=== PATIENT | female | born 1980 | race Hispanic/Latino ===

== ENCOUNTER 2016-07-02 05:07 | Emergency (ER) | payer MEDICARE ==
--- NOTE | 2016-07-02 07:13 | Emergency Department Report ---
ED General Adult HPI - General Chief complaint: Medical Clearance Stated complaint: G-TUBE REPLACEMENT Time Seen by Provider: 07/02/16 06:08 Source: EMS Mode of arrival: Stretcher Limitations: Physical Limitation - History of Present Illness Initial comments: 36 yo female with a past medical history traumatic brain injury, quadriplegia, seizures, previous trach tube, and current PEG tube presents to the hospital from [facility] for PEG tube displacement. Patient did not present with a PEG tube or indication of previous PEG tube sides. Pt is nonverbal and unable to provide any history of present illness. No acute distress noted. Severity scale (0 -10): 0 - Related Data Home Medications Medication Instructions Recorded Confirmed Last Taken Esomeprazole Magnesium [NexIUM] 40 mg FEEDTUBE QDAY 05/31/13 04/16/16 04/16/16 Hydrocodone Bit/Acetaminophen 7.5 - 325 mg FEEDTUBE Q6H PRN 05/31/13 04/16/16 [Lortab 7.5-500 mg] LORazepam [Ativan] 1 mg FEEDTUBE BID 05/31/13 04/16/16 04/16/16 PHENobarbital 97.2 mg FEEDTUBE QDAY 05/31/13 04/16/16 04/16/16 Protein Supplement [Promod] 30 ml FEEDTUBE BID 12/17/13 04/16/16 04/16/16 Sertraline Oral Liqd(Nf) [Zoloft 50 mg FEEDTUBE QHS 12/17/13 04/16/16 04/16/16 20 mg/ml] LORazepam 1 ml IM Q6H PRN 08/18/14 04/16/16 04/16/16 levETIRAcetam [Keppra ORAL LIQ] 1,000 mg FEEDTUBE BID 08/18/14 04/16/16 04/16/16 Previous Rx's Medication Instructions Recorded Last Taken Type Sodium Bicarbonate 325 mg FEEDTUBE PRN PRN #30 tablet 06/02/13 04/16/16 Rx Allergies Allergy/AdvReac Type Severity Reaction Status Date / Time FORTINO Inhibitors Allergy Unknown Verified 05/31/13 11:51 ED Review of Systems ROS: Stated complaint: G-TUBE REPLACEMENT Other details as noted in HPI Comment: Unobtainable due to pts medical conditions ED Past Medical Hx - Past Medical History Previous Medical History?: Yes Hx Congestive Heart Failure: No Hx Diabetes: No Hx GERD: Yes Hx Seizures: Yes Hx Asthma: No Hx COPD: No Hx HIV: No Additional medical history: traumatic brain injury, anxiety, depression, quadraplegia - Surgical History Past Surgical History?: Yes Additional Surgical History: previous trach, PEG tube - Social History Smoking Status: Never Smoker - Medications Home Medications: Home Medications Medication Instructions Recorded Confirmed Last Taken Type Esomeprazole Magnesium [NexIUM] 40 mg FEEDTUBE QDAY 05/31/13 04/16/16 04/16/16 History Hydrocodone Bit/Acetaminophen 7.5 - 325 mg FEEDTUBE Q6H PRN 05/31/13 04/16/16 History [Lortab 7.5-500 mg] LORazepam [Ativan] 1 mg FEEDTUBE BID 05/31/13 04/16/16 04/16/16 History PHENobarbital 97.2 mg FEEDTUBE QDAY 05/31/13 04/16/16 04/16/16 History Sodium Bicarbonate 325 mg FEEDTUBE PRN PRN #30 tablet 06/02/13 04/16/16 Rx Protein Supplement [Promod] 30 ml FEEDTUBE BID 12/17/13 04/16/16 04/16/16 History Sertraline Oral Liqd(Nf) [Zoloft 50 mg FEEDTUBE QHS 12/17/13 04/16/16 04/16/16 History 20 mg/ml] LORazepam 1 ml IM Q6H PRN 08/18/14 04/16/16 04/16/16 History levETIRAcetam [Keppra ORAL LIQ] 1,000 mg FEEDTUBE BID 08/18/14 04/16/16 History ED Physical Exam - General Limitations: Physical Limitation - Other Other exam information: General: No limitations, patient is alert in no acute distress Head exam: Atraumatic, normocephalic Eyes exam: Normal appearance ENT: Moist mucous membrane, normal oropharynx Neck exam: Normal inspection, full range of motion, no meningismus nontender Respiratory exam: Clear to auscultation bilateral, no wheezes, rales, crackles Cardiovascular: Normal rate and rhythm Abdomen: Soft, nondistended, and nontender, with normal bowel sounds, no rebound, or guarding. peg stoma noted and appears patent on exam Extremity: Contracted extremities Neurologic: Alert, nonverbal, contracted Psychiatric: normal affect, normal mood Skin: Warm, dry, intact ED Course Vital Signs 07/02/16 07/02/16 07/02/16 06:21 07:05 07:49 Temperature 98.8 F Pulse Rate 76 88 Respiratory 16 16 16 Rate Blood Pressure 113/80 Blood Pressure 113/80 130/80 [Right] O2 Sat by Pulse 96 95 96 Oximetry - Consultations Consultation #1: 07/02/16 08:13 case d/w Dr Cross with GI and states 16f is adequate for feeds and pt may be d/ margi - Procedure Description Procedures done: 16 [place] PEG tube was placed in the stoma using surgery loop to lubricate. Positive gastric contents obtained. Balloon inflated with 5 mL of normal saline. G-tube study ordered ED Medical Decision Making - Radiology Data Radiology results: report reviewed (g tube study: tube in distal stomach, Gastrografin in bowel) - Medical Decision Making 16 [place] G-tube placed without incidence. [facility] be [facility] - Differential Diagnosis G-tube displacement Critical Care Time: No Critical care attestation.: If time is entered above; I have spent that time in minutes in the direct care of this critically ill patient, excluding procedure time. ED Disposition Clinical Impression: Malfunction of gastrostomy tube Disposition: DISCHARGED TO HOME OR SELFCARE Is pt being admited?: No Does the pt Need Aspirin: No Condition: Stable Instructions: How to Use and Care for Your PEG Tube (ED) Referrals: PRIMARY CAREMD [Primary Care Provider] - 3-5 Days Time of Disposition: 08:14
[2016-07-02 07:49] VITALS: BP 130/80
--- NOTE | 2016-07-02 09:22 | XRay Report ---
G-TUBE STUDY: HISTORY: PEG tube placement, position and confirmation. FINDINGS: Paperhanger Pipe film of the abdomen demonstrates moderate constipation and a PEG tube in the epigastric region. A second radiograph was obtained following injection of oral contrast through the PEG tube which outlines the stomach and multiple proximal small bowel loops. There is no evidence for focal lesion, obstruction or extravasation. IMPRESSION: The PEG tube terminates in the stomach. No abnormality is detected.
== END 2016-07-02 10:00 | disposition home or self-care (01) ==
LOC: ED 05:07
DX: K94.23 Gastrostomy malfunction (principal); K21.9 Gastro-esophageal reflux disease without esophagitis; R56.9 Unspecified convulsions; F41.9 Anxiety disorder, unspecified; F32.9 Major depressive disorder, single episode, unspecified; Z88.8 Allergy status to other drugs, medicaments and biological substances
CPT/HCPCS: 74000; Q9963

== ENCOUNTER 2016-08-21 07:07 | Inpatient (IN) | payer MEDICARE ==
[2016-08-21] MEDS ORDERED: NACL 0.9% 1000 ML 1,000 ML ONE ×2 (07:10→09:40)
[2016-08-21] MEDS ORDERED: TYLENOL PR ONE (07:11)
[2016-08-21] MEDS ORDERED: VASELINE LIP THERAPY TP PRN (07:15)
[2016-08-21] MEDS ORDERED: ARTIFICIAL TEARS OPHTH OINT OU PRN (07:15)
[2016-08-21] MEDS ORDERED: NACL 0.9% 500 ML 500 ML IV ONE (07:15)
[2016-08-21] MEDS ORDERED: TYLENOL ONE (07:18)
[2016-08-21] MEDS ORDERED: TYLENOL FEEDTUBE PRN (07:20)
[2016-08-21] MEDS ORDERED: VANCOMYCIN/NS 1 GM/250 ML 1 GM/250 ML BAG IV ONE ×2 (07:21→07:23)
[2016-08-21] MEDS ORDERED: ZOSYN/NS 4.5GM/100ML 4.5 GM/100 ML VIAL IV ONE ×2 (07:21→07:24)
[2016-08-21] MEDS ORDERED: NACL 0.9% 1000 ML 2,000 ML IV ONE (07:21)
[2016-08-21] MEDS ORDERED: TYLENOL FEEDTUBE ONE (07:25)
--- NOTE | 2016-08-21 07:55 | XRay Report ---
AP CHEST: HISTORY: Endotracheal tube placement. Compared to 10/27/15. The endotracheal tube is in adequate position terminating 3.5 cm superior to the nitza. A right IJ venous catheter terminates at the cavoatrial junction. Left lower lobe opacity has resolved since the previous exam. The lungs are clear. Normal heart and mediastinal structures. Normal bony thorax. IMPRESSION: Adequate placement of lines and tubes. Otherwise normal AP chest.
[2016-08-21] MEDS ORDERED: NACL 0.9% 500 ML IV SCH (08:00)
[2016-08-21 08:16] LABS: Bacteria,Urine 4+ /HPF (Negative); Bilirubin,Urine NEG (Negative); Blood,Urine NEG (Negative); Ketones,Urine TR mg/dL (Negative); Leukocyte Esterase,Urine NEG (Negative); Nitrite,Urine NEG (Negative)
[2016-08-21 08:17] LABS: INR 2.2 (0.87-1.13)
[2016-08-21 08:18] LABS: WBC,Urine > 182.0 /HPF (0.0-6.0)
[2016-08-21] MEDS ORDERED: SIMPLE SYRUP FEEDTUBE PRN ×4 (08:20→16:34)
[2016-08-21] MEDS ORDERED: ALUM-MAG HYDROX-SIMETH 200-200-20MG/5ML PO PRN (08:20)
[2016-08-21] MEDS ORDERED: DULCOLAX PR PRN (08:20)
[2016-08-21] MEDS ORDERED: VANCOMYCIN VIAL 1,250 MG in NACL 0.9% 500 ML 500 ML IV ONE (08:20)
[2016-08-21] MEDS ORDERED: NACL 0.9% 1000 ML 1,000 ML IV ONE ×3 (08:20→10:57)
[2016-08-21] MEDS ORDERED: SODIUM BICARBONATE FEEDTUBE PRN ×2 (08:20→16:34)
[2016-08-21] MEDS ORDERED: PANCREAZE DR 10,500 UNIT FEEDTUBE PRN ×2 (08:20→16:34)
[2016-08-21] MEDS ORDERED: MILK OF MAGNESIA PO PRN (08:20)
[2016-08-21 08:21] LABS: Albumin 2.6 g/dL (3.9-5); Albumin/Globulin Ratio 0.9 %; BUN/Creatinine Ratio 31.92; Bilirubin,Total 0.9 mg/dL (0.1-1.2); Chloride 133.6 mmol/L (98-107); Potassium 3.8 mmol/L (3.6-5.0); Total Protein 5.6 g/dL (6.3-8.2)
[2016-08-21 08:22] LABS: Mean Corpuscular HGB Conc 31 % (30-34); Mean Corpuscular Hemoglobin 32 pg (28-32); Mean Corpuscular Volume 103 fl (79-97); Red Blood Count 4.63 M/mm3 (3.65-5.03); Red Cell Distribution Width 15.4 % (13.2-15.2); White Blood Count 10.7 K/mm3 (4.5-11.0)
[2016-08-21 08:26] LABS: Hemoglobin 14.7 gm/dl (10.1-14.3)
[2016-08-21 08:27] LABS: Hematocrit 47.7 % (30.3-42.9)
[2016-08-21] MEDS ORDERED: ASPIRIN FEEDTUBE ONE (08:27)
--- NOTE | 2016-08-21 08:27 | Emergency Department Report ---
HPI - General Chief Complaint: Dyspnea/Respdistress Time Seen by Provider: 08/21/16 07:49 - HPI HPI: Chief complaint: Decreased responsiveness HPI: Patient is a correction patient with a history of quadriplegia and a G- tube who according to EMS was found this morning unresponsive. According to EMS the correction staff that the patient normally can speak and is alert and oriented. According to the paperwork, patient has quadriplegia and aphasia. EMS states that patient was barely breathing and they intubated her in route and started IV fluids. Mode of arrival: [EMS] Source: EMS and correction notes Began: Unable to assess Duration: Unable to assess Context: See above Quality: Unable to assess Severity: Unable to assess Improved with: Unable to assess Worsened with: Unable to assess Associated signs and symptoms: Unable to assess ED Past Medical Hx - Past Medical History Hx GERD: Yes Hx Seizures: Yes Additional medical history: traumatic brain injury, anxiety, depression, quadraplegia - Surgical History Additional Surgical History: previous trach, PEG tube - Social History Smoking Status: Unknown if ever smoked - Medications Home Medications: Home Medications Medication Instructions Recorded Confirmed Last Taken Type Esomeprazole Magnesium [NexIUM] 40 mg FEEDTUBE QDAY 05/31/13 04/16/16 04/16/16 History Hydrocodone Bit/Acetaminophen 7.5 - 325 mg FEEDTUBE Q6H PRN 05/31/13 04/16/16 History [Lortab 7.5-500 mg] LORazepam [Ativan] 1 mg FEEDTUBE BID 05/31/13 04/16/16 04/16/16 History PHENobarbital 97.2 mg FEEDTUBE QDAY 05/31/13 04/16/16 04/16/16 History Sodium Bicarbonate 325 mg FEEDTUBE PRN PRN #30 tablet 06/02/13 04/16/16 Rx Protein Supplement [Promod] 30 ml FEEDTUBE BID 12/17/13 04/16/16 04/16/16 History Sertraline Oral Liqd(Nf) [Zoloft 50 mg FEEDTUBE QHS 12/17/13 04/16/16 04/16/16 History 20 mg/ml] LORazepam 1 ml IM Q6H PRN 08/18/14 04/16/16 04/16/16 History levETIRAcetam [Keppra ORAL LIQ] 1,000 mg FEEDTUBE BID 08/18/14 04/16/16 History ED Review of Systems ROS: Stated complaint: UNRESPONSIVE Other details as noted in HPI Comment: Unobtainable due to pts medical conditions (patient unresponsive and intubated) Physical Exam - Physical Exam Vital Signs: Vital Signs 08/21/16 08/21/16 08/21/16 07:09 07:15 07:35 Temperature 108.0 F H Pulse Rate 178 H 150 H 150 H Respiratory 16 33 H Rate Blood Pressure 43/13 138/106 Blood Pressure 61/22 [Left] O2 Sat by Pulse 93 100 Oximetry 08/21/16 08/21/16 07:52 07:56 Temperature Pulse Rate 148 H 144 H Respiratory 33 H 33 H Rate Blood Pressure Blood Pressure 122/47 138/106 [Left] O2 Sat by Pulse 100 100 Oximetry Physical Exam: GENERAL: The patient is a chronically ill-appearing female who is unresponsive. HEENT: Patient is intubated and has a scar to her anterior neck from a previous tracheostomy. NECK: Supple. No meningitic signs are noted. There is no adenopathy noted. CHEST/LUNGS: Clear to auscultation. Bilateral breath sounds with bagging. No respiratory effort. HEART/CARDIOVASCULAR: Regular. There is tachycardia. There is no gallop rub or murmur. ABDOMEN: Abdomen is soft, nontender. Patient has normal bowel sounds. There is no abdominal distention. G-tube in place SKIN: There is no rash. There is no edema. There is no diaphoresis. NEURO: The patient is obtunded. MUSCULOSKELETAL: Patient has contractures of all 4 extremities. ED Course Vital Signs 08/21/16 08/21/16 08/21/16 07:09 07:15 07:35 Temperature 108.0 F H Pulse Rate 178 H 150 H 150 H Respiratory 16 33 H Rate Blood Pressure 43/13 138/106 Blood Pressure 61/22 [Left] O2 Sat by Pulse 93 100 Oximetry 08/21/16 08/21/16 07:52 07:56 Temperature Pulse Rate 148 H 144 H Respiratory 33 H 33 H Rate Blood Pressure Blood Pressure 122/47 138/106 [Left] O2 Sat by Pulse 100 100 Oximetry - Reevaluation(s) Reevaluation #1: 08/21/16 Noted to have a temp of 108 rectally and a septic workup was begun. Central line was placed by myself and patient was given 2 L of normal saline wide open and started on Levophed drip. Patient was cultured and 1 g of IV vancomycin and 4.5 g of Zosyn were given IV. Patient was admitted to the hospitalist. - Central Line Placement Right IJ Consent Obtained: emergent situation Time Out Performed: No Patient Placed on Monitor/Pulse Ox: Yes MD Prep: mask, gown, gloves, other Central Line Prep: Povidone-Iodine 1% Ultrasound Used for Placement: Yes Central Line Lumen Inserted: triple Bloods Obtained for Lab: Yes Central Line Position: good blood return, all ports aspirated, flus, sutured in place with 3-0 Dressing Applied: Tegaderm Post Procedure X-Ray: tip of catheter in good p Patient Tolerated Procedure: no complications Complications: none ED Medical Decision Making - Lab Data Result diagrams: 08/21/16 07:15 08/21/16 07:49 Laboratory Tests 12/17/13 12/17/13 08/21/16 12:05 12:13 07:25 PT INR VBG pH Lactic Acid Calcium Total Protein Albumin Ur Leukocyte Esterase Neg Urine WBC (Auto) 71.0 H > 182.0 H Urine RBC (Auto) 35.0 20.0 U Epithel Cells (Auto) 4.0 20.0 H Urine WBC Clumps 2+ Urine Bacteria (Auto) 1+ 4+ Phenobarbital 15.7 08/21/16 08/21/16 08/21/16 07:49 07:49 07:49 PT 24.5 H INR 2.20 H VBG pH Lactic Acid 4.4 H* Calcium 7.0 L Total Protein 5.6 L Albumin 2.6 L Ur Leukocyte Esterase Urine WBC (Auto) Urine RBC (Auto) U Epithel Cells (Auto) Urine WBC Clumps Urine Bacteria (Auto) Phenobarbital 08/21/16 07:49 PT INR VBG pH 7.285 L Lactic Acid Calcium Total Protein Albumin Ur Leukocyte Esterase Urine WBC (Auto) Urine RBC (Auto) U Epithel Cells (Auto) Urine WBC Clumps Urine Bacteria (Auto) Phenobarbital - EKG Data -: EKG Interpreted by Ut EKG shows normal: sinus rhythm Rate: tachycardia (153) - EKG Data When compared to previous EKG there are: previous EKG unavailable Interpretation: subendocardial ischemia (diffuse) - Radiology Data Radiology results: report reviewed (chest x-ray shows ET tube and central line in good position with no acute pathology.) Critical care time in (mins) excluding proc time.: 35 Critical care attestation.: If time is entered above; I have spent that time in minutes in the direct care of this critically ill patient, excluding procedure time. ED Disposition Clinical Impression: Dehydration with hypernatremia Urinary tract infection Qualifiers: Urinary tract infection type: acute pyelonephritis Qualified Code(s): N10 - Acute pyelonephritis Sepsis Qualifiers: Sepsis type: sepsis due to unspecified organism Qualified Code(s): A41.9 - Sepsis, unspecified organism Acute renal failure Qualifiers: Acute renal failure type: unspecified Qualified Code(s): N17.9 - Acute kidney failure, unspecified Disposition: OP ADMITTED IP TO THIS HOSP Is pt being admited?: Yes Does the pt Need Aspirin: Yes Condition: Critical Referrals: BRIDGER RODRIGUEZ MD [Primary Care Provider] - 3-5 Days Time of Disposition: 08:25 (admit to the hospitalist)
[2016-08-21] MEDS: LEVOPHED DRIP 4 MG/NS 250 ML 4 MG/250 ML BAG IV SCH ×7 (08:30→23:00)
[2016-08-21 08:51] LABS: ISTAT Base Excess -12; ISTAT HCO3 14.5; ISTAT PCO2 28.2 (35-45); ISTAT PH 7.318 (7.35-7.45); ISTAT PO2 504 (80-105); ISTAT SO2 100; ISTAT TCO2 15
[2016-08-21] MEDS ORDERED: NACL 0.9% 1000 ML 1,000 ML IV SCH (09:00)
[2016-08-21] MEDS ORDERED: VANCOMYCIN PHARMACY TO DOSE IV SCH (09:00)
[2016-08-21 09:11] LABS: Basophils % (Manual) 0 % (0.0-1.8); Blastocytes % (Manual) 0 %; Eosinophils % (Manual) 0 % (0.0-4.3)
[2016-08-21 09:12] LABS: Diff Status Complete; Large Platelets 1+; Platelet Estimate Appears Decreased
[2016-08-21 09:13] LABS: RBC Morphology Normal
--- NOTE | 2016-08-21 09:18 | Admit Criteria Form ---
Admission Criteria Documentation: SEVERE SEPSIS Clinical Indications for Admission to Inpatient Care (Place 'X' for any and all applicable criteria): Hospital admission is needed for appropriate care of the patient because of ANY ONE of the following: [X]I. Hemodynamic instability indicated by ANY ONE of the following(1)(2)(3)( 4)(5): [X]a. Vital sign abnormality not readily corrected by appropriate treatment within 12 to 24 hours indicated by ANY ONE of the following: [X]i) Tachycardia that persists despite appropriate treatment []ii) Hypotension that persists despite appropriate treatment []iii) Orthostatic vital sign changes that persist despite appropriate treatment [X]b. Vital sign abnormality that is severe indicated by ANY ONE of the following: [X]i.Inadequate perfusion indicated by ANY ONE of the following : [X]1) Lactic acidosis (greater than 2 mmol/L) []2) New abnormal capillary refill (greater than 3 seconds) []3) Reduced urine output []4) New altered mental status []5) Myocardial Ischemia []ii. Mean arterial pressure [A] less than 60 mm Hg []iii. Mean arterial pressure[A] less than 70 mm Hg after 30 minutes of appropriate treatment (eg, fluid resuscitation) []iv. Sustained heart rate greater than 120 beats per minute in adult []v. IV inotropic or vasopressor medication required to maintain adequate blood pressure or perfusion [X]II. Systemic or infectious condition causing severe symptoms or findings not responsive to emergency or observation care treatment (as appropriate) indicated by ANY ONE of the following: []a. Cardiac arrhythmias of immediate concern(1)(2)(3) []b. Severe endocrine disorder (eg, thyrotoxicosis, adrenal insufficiency)(4)(5) []c. Seizures (eg, new or recurrent)(6) []d. New-onset end organ failure or dysfunction as indicated by ANY ONE of the following: []i. Acute unexplained hypoxemia (eg, not from lung infection or chronic disease)(7)(8)(9) []ii. Acute renal failure as indicated by new onset of ANY ONE of the following(10)(11)(12)(13)(14): []1) 3-fold rise in serum creatinine from baseline []2) Serum creatinine greater than 4 mg/dL (354 micromoles/L) with acute rise greater than 0.5 mg/dL (44.2 micromoles/L) []3) Reduction of more than 75% in estimated glomerular filtration rate from baseline. []4) Estimated glomerular filtration rate less than 35 mL/min/1.73m2 ( 0.59 mL/sec/1.73m2) in child younger than 18 years. []5) Cessation of urine output indicated by ALL of the following: []A. Adequate volume status []B. Inadequate urine output as indicated by ANY ONE of the following: []a. Urine output less than 0.3 mL/kg/hr for 24 hours []b. Anuria (urine output less than 0.1 mL/kg/hr) for 12 hours []iii. Acute mental status changes(15) []iv. Acute hepatic failure (eg, plasma bilirubin greater than 4 mg/ dL (68 micromoles/L), new INR greater than 2.0)(16)(17) []e. Unmanageable nausea and vomiting(18) []f. New-onset or uncontrolled central diabetes insipidus(19)(20) []g. Clinically significant dehydration(18)(21) []h. Hypoglycemia(22) [X]i. Acidosis (pH less than 7.35) or alkalosis (pH greater than 7.45)( 22)(23) []j. Toxic drug level that indicates need for specific monitoring or treatment(24)(25) [X]k. Severe electrolyte abnormalities indicated by ALL of the following (1)(2)(3): [X]i. Electrolytes and associated findings are not as expected for patient baseline or acceptable treatment effects. []ii. Severe abnormalities indicated by ANY ONE of the following: []1) Sodium less than 130 mEq/L (mmol/L) (new) []2) Sodium less than 135 mEq/L (mmol/L) with ANY ONE of the following: []A. Uncorrectable (to near normal or chronic baseline) after trial of outpatient and emergency treatment []B. Altered mental status []C. Seizures []D. Severe medical etiology requiring inpatient management (eg , heart failure, hypovolemia) [X]3) Sodium greater than 155 mEq/L (mmol/L) []4) Sodium greater than 150 mEq/L (mmol/L) with ANY ONE of the following: []A. Uncorrectable (to near normal or chronic baseline) with outpatient and emergency treatment []B. Altered mental status []C. Seizures []D. Severe medical etiology (eg, hypovolemia, diabetes insipidus) []5) Potassium less than 2.5 mEq/L (mmol/L) despite outpatient and emergency treatment []6) Potassium less than 3 mEq/L (mmol/L) with ANY ONE of the following : []A. Weakness []B. Cardiac abnormality (eg, arrhythmia, conduction disturbance ) []C. Cardiac ischemia []D. Ileus []E. Ongoing medical cause requiring inpatient management (eg, acute renal wasting or SIADH) []F. Other severe symptoms []7) Potassium greater than 6.5 mEq/L (mmol/L) []8) Potassium greater than 5 mEq/L (mmol/L) with ANY ONE of the following: []A. Uncorrectable (to near normal or chronic baseline) with outpatient and emergency treatment []B. Severe ECG findings[A] []C. Acute worsening of renal failure (creatinine greater than 2.5 mg/dL (221 micromoles/L) or significant elevation for age and size) []D. Severe weakness []E. Severe medical etiology (eg, hemolysis, infection, drug overdose) []9) Calcium less than 7 mg/dL (1.75 mmol/L) despite outpatient and emergency treatment(5) []10) Calcium less than 8 mg/dL (2 mmol/L) with significant symptoms or findings (eg, altered mental status, muscle spasms, seizures, breathing difficulty, cardiac abnormality (eg, arrhythmia or conduction disturbance))(5) []11) Calcium greater than 14 mg/dL (3.5 mmol/L)(5) []12) Calcium greater than 12 mg/dL (3 mmol/L) with ANY ONE of the following(5): []A. Uncorrectable (to near normal or chronic baseline) with outpatient and emergency treatment []B. Significant dehydration or hypovolemia as indicated by ALL of the following(3)(6)(7): []a. Not resolved with initial treatments []b. Clinically significant dehydration as indicated by ANY ONE of the following: [](1) Vomiting refractory to outpatient treatment (ie, precluding oral rehydration) [](2) Inability to drink [](3) Hypernatremia or other electrolyte abnormality unable to be corrected with outpatient and emergency treatment [](4) Failure to remain hydrated with outpatient therapy [](5) Reduced urine output [](6) Hypotension [](7) Serious cause for dehydration requiring acute hospitalization ( eg, bowel obstruction, increased intracranial pressure, infectious cause) [](8) Child with ANY ONE of the following(8): [](i) Severe abdominal tenderness [](ii) Adequate care not available at home [](iii) Severe dehydration (greater than 9% loss of body weight) []C. Significant symptoms or findings (eg, altered mental status , cardiac abnormality (eg, arrhythmia, conduction disturbance), malignant etiology requiring inpatient treatment) []13) Phosphorus less than 1 mg/dL (0.32 mmol/L) []14) Phosphorus less than 1.5 mg/dL (0.48 mmol/L) with ANY ONE of the following: []A. Patient unresponsive to outpatient and emergency treatment []B. Significant symptoms or findings (eg, weakness, altered mental status, breathing difficulty, seizures, rhabdomyolysis) []15) Phosphorus greater than 10 mg/dL (3.2 mmol/L) []16) Phosphorus greater than 4.5 mg/dL (1.45 mmol/L) (new) with ANY ONE of the following: []A. Severe medical etiology (eg, crush injury, acute renal failure) []B. Associated hypocalcemia with significant findings (eg, neurologic symptoms, altered mental status, muscle spasms, seizures, breathing difficulty, cardiac abnormality (eg, arrhythmia, conduction disturbance)) []16) Magnesium less than 1 mg/dL (0.41 mmol/L) []17) Magnesium less than 1.5 mg/dL (0.62 mmol/L) with ANY ONE of the following: []A. Patient unresponsive to outpatient and emergency treatment []B. Associated hypocalcemia with significant findings (eg, altered mental status, muscle spasms, seizures, breathing difficulty, cardiac abnormality (eg, arrhythmia, conduction disturbance)) []C. Associated hypokalemia (potassium less than 3 mEq/L (mmol/L )) with risk of arrhythmia []18) Magnesium greater than 4 mEq/L (2 mmol/L) []19) Magnesium greater than 2.5 mEq/L (1.25 mmol/L) with significant symptoms or findings (eg, weakness, altered mental status, cardiac abnormality (eg, arrhythmia, conduction disturbance), breathing difficulty, severe medical etiology (eg, renal failure, hypovolemia)) []20) Uric acid greater than 20 mg/dL (1190 micromoles/L)(9) []21) Uric acid greater than 8 mg/dL (476 micromoles/L) with significant symptoms or findings of tumor lysis syndrome (eg, creatinine greater than 1.5 times upper limit of normal, cardiac abnormality (eg , arrhythmia, conduction disturbance), seizure)(9) [X]III. High fever or other high-risk infection situation as indicated by ANY ONE of the following(26)(27)(28): []a. Outpatient and observation care antimicrobial treatment unavailable, not effective, or not appropriate []b. Documented bacteremia [X]c. Temperature greater than 104.9 degrees F (40.5 degrees C) (oral) []d. Temperature greater than 103.1 degrees F (39.5 degrees C) (oral) or less than 96.8 degrees F (36 degrees C) (rectal) that does not respond to emergency treatment and observation care []IV. High-risk febrile neutropenia[A] as indicated by ANY ONE of the following(29)(30)(31)(32): []a. Profound neutropenia[B] anticipated to extend for more than 7 days []b. Hemodynamic instability []c. Hypoxemia []d. Tachypnea []e. Altered mental status []f. New-onset abdominal pain []g. New-onset vomiting or diarrhea []h. Oral or gastrointestinal mucositis that interferes with swallowing or causes severe diarrhea []i. Focal infection (eg, cellulitis, pneumonia, central line or catheter infection, perirectal abscess) []j. Renal insufficiency (eg, GFR of less than 30 mL/min/1.73m2 (0.5 mL/sec /1.73m2)). []k. Severe liver dysfunction (transaminase levels greater than 5 times normal) []l. Platelet count less than 50,000/mm3 (50 x109/L)(33) []m. Leukemia or lymphoma induction therapy []n. Leukemia not in complete remission or with evidence of disease progression []o. Bone marrow transplant patient []p. Alemtuzumab being used for therapy []q. [employer]inational Association for Supportive Care in Cancer (MASCC) Risk Index score of less than 21[C](33)(35). []V. Isolation required (eg, tuberculosis that requires isolation, Ebola infection)[D](36)(37)(38)(39)(40) []. Gangrene that requires treatment beyond emergency or observation level care(41)(42) []VII. Antitoxin administration and ongoing observation required (eg, tetanus, botulism)(43)(44) []. Suspected infection with rapid progression or severe symptoms as indicated by ANY ONE of the following(45): []a. Streptococcal or staphylococcal toxic shock(46) []b. Diphtheria(47) []c. Hantavirus(48) []d. Severe acute respiratory syndrome(8)(49) []e. Anthrax(50) []f. Ebola[D](36)(37)(38) []g. Necrotizing soft tissue infection(41)(42) []h. Plague(50) []i. Other suspected infection that requires care beyond emergency or observation level care []VII. Severe adverse drug or systemic toxin reaction as indicated by ANY ONE of the following(24): []a. Serotonin syndrome(51)(52) []b. Neuroleptic malignant syndrome(51)(52) []c. Cholinergic syndrome with severe symptoms (eg, bronchorrhea, weakness , mental status changes, seizures)(53) []d. Anticholinergic syndrome []e. Sympathetic syndrome with severe symptoms (eg, seizures, mental status changes, cardiac dysrhythmias) []f. Other severe adverse drug or systemic toxin reaction that remains after emergency or observation level care (as appropriate) []VIII. Allergic reaction with severe symptoms (not responsive to emergency or observation care treatment as appropriate), including ANY ONE of the following(54): []a. Airway edema (pharyngeal, epiglottic, or laryngeal edema) []b. Stridor []c. Respiratory failure []d. Bronchospasm []e. Hypotension []IX. Environmental emergency (not responsive to emergency or observation care treatment as appropriate) as indicated by ANY ONE of the following(55)(56): []a. Hyperthermia []b. Heat stroke []c. Heat exhaustion []d. Hypothermia (temperature less than 95 degrees F (35 degrees C) rectal) (57) []e. Electrocution(58) []X. Complications of transplanted organ (ie, not covered elsewhere)[E] indicated by ANY ONE of the following(59): []a. Acute graft rejection (or graft vs. host disease)[F] requiring inpatient management (eg, intravenous immunosuppression)(60)(61)(62)( 63) []b. Acute failure of transplanted organ necessitating inpatient care (eg, cannot be managed in other setting) []c. Infection requiring inpatient management (eg, Hemodynamic instability, need for intravenous antimicrobial treatment)(64)(65) []d. Other complication of transplanted organ requiring inpatient management []XI. Systemic or Infectious Condition condition, symptom, or finding for which emergency and observation care have failed or are not considered appropriate. See General Criteria: Observation Care, General Admission Criteria or Pediatric General Admission Criteria guideline as appropriate. (Contents from SEVERE SEPSIS and SYSTEMIC OR INFECTIOUS CONDITION clinical indications for admission to inpatient care have been integrated in this form) The original [facility] content created by [facility] [employer] has been revised. The portions of the content which have been revised are identified through the use of italic text or in bold and [facility] has neither reviewed nor approved the modified material. All other unmodified content is copyright [facility]. Please see references footnoted in the original [facility] edition 2016 Admission Criteria Met: Yes
[2016-08-21] MEDS ORDERED: VANCOMYCIN VIAL 1,250 MG in NACL 0.9% 250ML 250 ML IV ONE (10:00)
[2016-08-21] MEDS: ZOSYN/NS 4.5GM/100ML 4.5 GM/100 ML VIAL IV SCH ×3 (10:04→18:21)
[2016-08-21 10:28] LABS: Platelet Count 87 K/mm3 (140-440)
--- NOTE | 2016-08-21 10:48 | Consultation ---
History of Present Illness - Reason for Consult Consult date: 08/21/16 Critical Care/ICU management Requesting physician: YUNG POON - History of Present Illness 36 y/o female history of TBI, resides a nursing facility, brought in to ED hypotensive and unresponsive. Intubated in the ED and had a right IJ central line placed. Currently maxed on levophed. Unresponsive and no family no unable to obtain any further history. Has been admitted here to [facility] , last admit was in October of 2015. Past History Past Medical History: GERD, other (seizures, quadraplegia) Past Surgical History: Other (unable to obtain) Social history: other (lives at nursing facility.) Family history: other (unable to obtain) Medications and Allergies Allergies Allergy/AdvReac Type Severity Reaction Status Date / Time FORTINO Inhibitors Allergy Unknown Verified 05/31/13 11:51 Home Medications Medication Instructions Recorded Confirmed Last Taken Type Esomeprazole Magnesium [NexIUM] 40 mg FEEDTUBE QDAY 05/31/13 04/16/16 04/16/16 History Hydrocodone Bit/Acetaminophen 7.5 - 325 mg FEEDTUBE Q6H PRN 05/31/13 04/16/16 History [Lortab 7.5-500 mg] LORazepam [Ativan] 1 mg FEEDTUBE BID 05/31/13 04/16/16 04/16/16 History PHENobarbital 97.2 mg FEEDTUBE QDAY 05/31/13 04/16/16 04/16/16 History Sodium Bicarbonate 325 mg FEEDTUBE PRN PRN #30 tablet 06/02/13 04/16/16 Rx Protein Supplement [Promod] 30 ml FEEDTUBE BID 12/17/13 04/16/16 04/16/16 History Sertraline Oral Liqd(Nf) [Zoloft 50 mg FEEDTUBE QHS 12/17/13 04/16/16 04/16/16 History 20 mg/ml] LORazepam 1 ml IM Q6H PRN 08/18/14 04/16/16 04/16/16 History levETIRAcetam [Keppra ORAL LIQ] 1,000 mg FEEDTUBE BID 08/18/14 04/16/16 History Active Meds: Active Medications Acetaminophen (Tylenol) 650 mg FEEDTUBE Q6H PRN PRN Reason: Pain, Mild (1-3) Al Hydrox/Mg Hydrox/Simethicone (Alum-Mag Hydrox-Simeth [id number]/5ml) 30 ml PO Q4H PRN PRN Reason: Indigestion Albuterol/Ipratropium (Duoneb 0.5 Mg-3 Mg/3 Ml Soln) 1 ampul IH Q6HRT WICHO Lipase/Protease/Amylase (Pancreaze Dr 10,500 Unit) 1 each FEEDTUBE PRN PRN PRN Reason: For Clogged Feeding Tube Bisacodyl (Dulcolax) 10 mg [place] QDAY PRN PRN Reason: constipation unrelieved by MOM Heparin Sodium (Porcine) (Heparin) 5,000 unit SUB-Q Q12HR WICHO Hydrophilic Ointment (Vaseline Lip Therapy) 1 applic TP Q2HR PRN PRN Reason: Dry Lips Norepinephrine (Levophed Drip 4 Mg/Ns 250 Ml) 4 mg in 250 mls @ 7.5 mls/hr IV TITR WICHO; 2 MCG/MIN PRN Reason: Protocol Last Titration: 08/21/16 09:50 Dose: 30 mcg/min, 112.5 mls/hr Sodium Chloride (Nacl 0.9% 1000 Ml) 1,000 mls @ 150 mls/hr IV DIRECT WICHO Piperacillin Sod/Tazobactam Sod (Zosyn/Ns 4.5gm/100ml) 4.5 gm in 100 mls @ 200 mls/hr IV Q6HR WICHO PRN Reason: Protocol Last Admin: 08/21/16 10:04 Dose: Not Given Vancomycin HCl (Vancomycin/Ns 1 Gm/250 Ml) 1 gm in 250 mls @ 166.667 mls/hr IV Q36H WICHO Vasopressin 20 unit/ Sodium (Chloride) 101 mls @ 9.09 mls/hr IV TITR WICHO; 0.03 UNITS/MIN PRN Reason: Protocol Magnesium Hydroxide (Milk Of Magnesia) 30 ml PO Q4H PRN PRN Reason: Constipation Multi-Ingred Cream/Lotion/Oil/Oint (Artificial Tears Ophth Oint) 1 applic OU Q4HR PRN PRN Reason: Dry Eye(s) Simple Syrup (Simple Syrup) 15 ml FEEDTUBE PRN PRN PRN Reason: Hypoglycemia Simple Syrup (Simple Syrup) 30 ml FEEDTUBE PRN PRN PRN Reason: Hypoglycemia Sodium Bicarbonate (Sodium Bicarbonate) 325 mg FEEDTUBE PRN PRN PRN Reason: For Clogged Feeding Tube Sodium Chloride (Nacl 0.9% 500 Ml) 1 ml IV DIRECT WICHO Vancomycin HCl (Vancomycin Pharmacy To Dose) 1 each IV PKCONSULT WICHO PRN Reason: Protocol Review of Systems ROS unobtainable: due to endotracheal tube, due to mental status Exam - Constitutional Vitals: Temp Pulse Resp BP Pulse Ox 104.5 F H 160 H 29 H 104/58 100 08/21/16 09:52 08/21/16 10:20 08/21/16 10:20 08/21/16 10:20 08/21/16 10:20 General appearance: Present: other (orally intubated) Results - Labs CBC & Chem 7: 08/22/16 05:35 08/22/16 07:15 - Imaging and Cardiology Chest x-ray: image reviewed (Clear CXR, no evidence of acute lung disease) Assessment and Plan 36 y/o female with acute respiratory failure, shock, most likely secondary to volume depletion, severe hypernatremia and acute renal failure, fever with concern for UTI. 1. Will obtain CVP 2. Will add vasopressin if second pressor is needed 3. Agree with checking serum and urine osms, most likely patient is hypovolemic hypernatremia given labs or nephrogenic vs central DI 4. Primary has consulted ID. Patient has been seen by them in the past for fevers of unknown origin. All cultures had been negative and the previous group monitored off abx therapy. 5. Will wean FiO2 and vent support. Per prior charting patient is essentially unresponsive at baseline and per nursing, she was intubated in the field secondary to hypotension/shock. Repeat ABG in am, adjust vent accordingly. 6. Follow up renal recs, likely ATN from hypotension/volume depletion 7. Elevated transaminases are likely from shock as well, will repeat, coagulopathy is likely secondary to this as well 8. elevated lactic acid is likely from impaired clearing given renal failure and elevated LFT's. Will trend out. Repeat in 6 hours. 9. Follow up cultures taken from ED Will continue to follow along with you. Thank you for this consult
--- NOTE | 2016-08-21 10:57 | Cat Scan Report ---
Cranial CT without contrast. History: Altered mental status. Findings: Comparison is made to a previous study on December 17, 2013. There is no evidence of an acute infarct or hemorrhage. There is cortical atrophy and consistent with the patient's age, but the overall appearance is stable. There are no masses or extra-axial collections. The posterior fossa is unremarkable. The ventricles are prominent and unchanged. The calvarium is intact. Impression: No acute findings or interval changes since 2013. Significant cortical atrophy is present and stable.
[2016-08-21] MEDS: NACL 0.9% 1000 ML 1,000 ML IV SCH ×3 (11:15→13:32)
[2016-08-21] MEDS: HEPARIN SUB-Q SCH ×2 (12:37→22:00)
[2016-08-21] MEDS: PITRESSin 20 UNIT in NACL 0.9% 100 ML IV SCH (14:52)
--- NOTE | 2016-08-21 16:03 | Consultation ---
History of Present Illness - Reason for Consult Consult date: 08/21/16 acute renal failure, hypernatremia, metabolic acidosis Requesting physician: SEAN CHANG - History of Present Illness HPI: Patient is a snf patient with a history of quadriplegia and a G- tube who according to EMS was found this morning unresponsive. According to EMS the snf staff that the patient normally can speak and is alert and oriented. According to the paperwork, patient has quadriplegia and aphasia. EMS states that patient was barely breathing and they intubated her in route and started IV fluids. Past History Past Medical History: GERD, other (seizures, quadraplegia) Past Surgical History: Other (unable to obtain) Social history: other (lives at nursing facility.) Family history: other (unable to obtain) Medications and Allergies Allergies Allergy/AdvReac Type Severity Reaction Status Date / Time FORTINO Inhibitors Allergy Unknown Verified 05/31/13 11:51 Home Medications Medication Instructions Recorded Confirmed Last Taken Type Esomeprazole Magnesium [NexIUM] 40 mg FEEDTUBE QDAY 05/31/13 04/16/16 04/16/16 History Hydrocodone Bit/Acetaminophen 7.5 - 325 mg FEEDTUBE Q6H PRN 05/31/13 04/16/16 History [Lortab 7.5-500 mg] LORazepam [Ativan] 1 mg FEEDTUBE BID 05/31/13 04/16/16 04/16/16 History PHENobarbital 97.2 mg FEEDTUBE QDAY 05/31/13 04/16/16 04/16/16 History Sodium Bicarbonate 325 mg FEEDTUBE PRN PRN #30 tablet 06/02/13 04/16/16 Rx Protein Supplement [Promod] 30 ml FEEDTUBE BID 12/17/13 04/16/16 04/16/16 History Sertraline Oral Liqd(Nf) [Zoloft 50 mg FEEDTUBE QHS 12/17/13 04/16/16 04/16/16 History 20 mg/ml] LORazepam 1 ml IM Q6H PRN 08/18/14 04/16/16 04/16/16 History levETIRAcetam [Keppra ORAL LIQ] 1,000 mg FEEDTUBE BID 08/18/14 04/16/16 History Active Meds: Active Medications Acetaminophen (Tylenol) 650 mg FEEDTUBE Q6H PRN PRN Reason: Pain, Mild (1-3) Last Admin: 08/21/16 12:45 Dose: 650 mg Al Hydrox/Mg Hydrox/Simethicone (Alum-Mag Hydrox-Simeth 525-742-32al/5ml) 30 ml PO Q4H PRN PRN Reason: Indigestion Albuterol/Ipratropium (Duoneb 0.5 Mg-3 Mg/3 Ml Soln) 1 ampul IH Q6HRT WICHO Lipase/Protease/Amylase (Pancreaze Dr 10,500 Unit) 1 each FEEDTUBE PRN PRN PRN Reason: For Clogged Feeding Tube Bisacodyl (Dulcolax) 10 mg [place] QDAY PRN PRN Reason: constipation unrelieved by MOM Heparin Sodium (Porcine) (Heparin) 5,000 unit SUB-Q Q12HR WICHO Last Admin: 08/21/16 12:37 Dose: 5,000 unit Hydrophilic Ointment (Vaseline Lip Therapy) 1 applic TP Q2HR PRN PRN Reason: Dry Lips Norepinephrine (Levophed Drip 4 Mg/Ns 250 Ml) 4 mg in 250 mls @ 7.5 mls/hr IV TITR WICHO; 2 MCG/MIN PRN Reason: Protocol Last Admin: 08/21/16 14:52 Dose: 30 mcg/min, 112.5 mls/hr Sodium Chloride (Nacl 0.9% 1000 Ml) 1,000 mls @ 150 mls/hr IV DIRECT WICHO Last Admin: 08/21/16 14:54 Dose: 150 mls/hr Piperacillin Sod/Tazobactam Sod (Zosyn/Ns 4.5gm/100ml) 4.5 gm in 100 mls @ 200 mls/hr IV Q6HR WICHO PRN Reason: Protocol Last Admin: 08/21/16 14:53 Dose: 200 mls/hr Vancomycin HCl (Vancomycin/Ns 1 Gm/250 Ml) 1 gm in 250 mls @ 166.667 mls/hr IV Q36H WICHO Vasopressin 20 unit/ Sodium (Chloride) 101 mls @ 12.12 mls/hr IV TITR WICHO; 0.04 UNITS/MIN PRN Reason: Protocol Last Admin: 08/21/16 14:52 Dose: 0.04 units/min, 12.12 mls/hr Magnesium Hydroxide (Milk Of Magnesia) 30 ml PO Q4H PRN PRN Reason: Constipation Multi-Ingred Cream/Lotion/Oil/Oint (Artificial Tears Ophth Oint) 1 applic OU Q4HR PRN PRN Reason: Dry Eye(s) Simple Syrup (Simple Syrup) 15 ml FEEDTUBE PRN PRN PRN Reason: Hypoglycemia Simple Syrup (Simple Syrup) 30 ml FEEDTUBE PRN PRN PRN Reason: Hypoglycemia Sodium Bicarbonate (Sodium Bicarbonate) 325 mg FEEDTUBE PRN PRN PRN Reason: For Clogged Feeding Tube Sodium Chloride (Nacl 0.9% 500 Ml) 1 ml IV DIRECT WICHO Vancomycin HCl (Vancomycin Pharmacy To Dose) 1 each IV PKCONSULT WICHO PRN Reason: Protocol Review of Systems ROS unobtainable: due to endotracheal tube, due to mental status Exam - Vital Signs Vital signs: Vital Signs Pulse Resp 177 H 19 08/21/16 07:06 08/21/16 07:06 - Physical Exam Narrative exam: GENERAL: The patient is a chronically ill-appearing female who is unresponsive. HEENT: Patient is intubated and has a scar to her anterior neck from a previous tracheostomy. NECK: Supple. No meningitic signs are noted. There is no adenopathy noted. CHEST/LUNGS: Clear to auscultation. Bilateral breath sounds with bagging. No respiratory effort. HEART/CARDIOVASCULAR: Regular. There is tachycardia. There is no gallop rub or murmur. ABDOMEN: Abdomen is soft, nontender. Patient has normal bowel sounds. There is no abdominal distention. G-tube in place SKIN: There is no rash. There is no edema. There is no diaphoresis. NEURO: The patient is obtunded. MUSCULOSKELETAL: Patient has contractures of all 4 extremities. Results - Lab Results 08/21/16 07:15 08/21/16 12:09 Most recent lab results Calcium 7.0 mg/dL (8.4-10.2) L 08/21/16 07:49 Assessment and Plan Impression: * edmundo * hyperatremia * sepsis * uti * volume depletion * hypotension * respiratory failure * TBI * quadraplegia Plan: * aggressive ivf resuscitation * free h20 per peg * vasopressors, keep map greater than 65 * daily lytes * iv abx for sepsis and uti * no indication for information assurance today * strict i/os * avoid nephrotoxins
--- NOTE | 2016-08-21 16:11 | History and Physical Report ---
History of Present Illness Date of examination: 08/21/16 Date of admission: 08/21/16 08:21 Chief complaint: Unresponsive History of present illness: Patient is a 36-year-old female [facility] resident with a history of quadriplegia, traumatic brain injury, anxiety, depression, previous trach, and PEG tube presently we'll presents to the ER via EMS after she was found unresponsive this morning. Musculoskeletal staff reports that patient normally speaks and is alert and oriented and a quadriplegic and previous reports describes outpatient visits aphasic at baseline. Nevertheless the patient is responded by the time the EMS arrived and patient was intubated in route and brought to the ER where she was noted to have a rectal temperature 108. unfortunately no further information can be obtained from the patient's aware asked to admit patient for further evaluation. Her last known well time was prior to midnight ROS Patient was noted to be contracted otherwise obtain any history from her. Past History Past Medical History: GERD, other ( traumatic brain injury, anxiety, depression , quadraplegia) Past Surgical History: Other (Trach, Peg tube) Social history: other (lives at nursing facility.) Family history: other (unable to obtain) Medications and Allergies Allergies Allergy/AdvReac Type Severity Reaction Status Date / Time FORTINO Inhibitors Allergy Unknown Verified 05/31/13 11:51 Home Medications Medication Instructions Recorded Confirmed Last Taken Type Esomeprazole Magnesium [NexIUM] 40 mg FEEDTUBE QDAY 05/31/13 04/16/16 04/16/16 History Hydrocodone Bit/Acetaminophen 7.5 - 325 mg FEEDTUBE Q6H PRN 05/31/13 04/16/16 History [Lortab 7.5-500 mg] LORazepam [Ativan] 1 mg FEEDTUBE BID 05/31/13 04/16/16 04/16/16 History PHENobarbital 97.2 mg FEEDTUBE QDAY 05/31/13 04/16/16 04/16/16 History Sodium Bicarbonate 325 mg FEEDTUBE PRN PRN #30 tablet 06/02/13 04/16/16 Rx Protein Supplement [Promod] 30 ml FEEDTUBE BID 12/17/13 04/16/16 04/16/16 History Sertraline Oral Liqd(Nf) [Zoloft 50 mg FEEDTUBE QHS 12/17/13 04/16/16 04/16/16 History 20 mg/ml] LORazepam 1 ml IM Q6H PRN 08/18/14 04/16/16 04/16/16 History levETIRAcetam [Keppra ORAL LIQ] 1,000 mg FEEDTUBE BID 08/18/14 04/16/16 History Active Meds: Active Medications Acetaminophen (Tylenol) 650 mg FEEDTUBE Q6H PRN PRN Reason: Pain, Mild (1-3) Last Admin: 08/21/16 12:45 Dose: 650 mg Albuterol/Ipratropium (Duoneb 0.5 Mg-3 Mg/3 Ml Soln) 1 ampul IH Q6HRT WICHO Lipase/Protease/Amylase (Pancreaze Dr 10,500 Unit) 1 each FEEDTUBE PRN PRN PRN Reason: For Clogged Feeding Tube Bisacodyl (Dulcolax) 10 mg [place] QDAY PRN PRN Reason: constipation unrelieved by MOM Heparin Sodium (Porcine) (Heparin) 5,000 unit SUB-Q Q12HR WICHO Last Admin: 08/21/16 12:37 Dose: 5,000 unit Hydrophilic Ointment (Vaseline Lip Therapy) 1 applic TP Q2HR PRN PRN Reason: Dry Lips Norepinephrine (Levophed Drip 4 Mg/Ns 250 Ml) 4 mg in 250 mls @ 7.5 mls/hr IV TITR WICHO; 2 MCG/MIN PRN Reason: Protocol Last Admin: 08/21/16 14:52 Dose: 30 mcg/min, 112.5 mls/hr Sodium Chloride (Nacl 0.9% 1000 Ml) 1,000 mls @ 150 mls/hr IV DIRECT WICHO Last Admin: 08/21/16 14:54 Dose: 150 mls/hr Piperacillin Sod/Tazobactam Sod (Zosyn/Ns 4.5gm/100ml) 4.5 gm in 100 mls @ 200 mls/hr IV Q6HR WICHO PRN Reason: Protocol Last Admin: 08/21/16 14:53 Dose: 200 mls/hr Vancomycin HCl (Vancomycin/Ns 1 Gm/250 Ml) 1 gm in 250 mls @ 166.667 mls/hr IV Q36H WICHO Vasopressin 20 unit/ Sodium (Chloride) 101 mls @ 12.12 mls/hr IV TITR WICHO; 0.04 UNITS/MIN PRN Reason: Protocol Last Admin: 08/21/16 14:52 Dose: 0.04 units/min, 12.12 mls/hr Multi-Ingred Cream/Lotion/Oil/Oint (Artificial Tears Ophth Oint) 1 applic OU Q4HR PRN PRN Reason: Dry Eye(s) Simple Syrup (Simple Syrup) 15 ml FEEDTUBE PRN PRN PRN Reason: Hypoglycemia Simple Syrup (Simple Syrup) 30 ml FEEDTUBE PRN PRN PRN Reason: Hypoglycemia Sodium Bicarbonate (Sodium Bicarbonate) 325 mg FEEDTUBE PRN PRN PRN Reason: For Clogged Feeding Tube Sodium Chloride (Nacl 0.9% 500 Ml) 1 ml IV DIRECT WICHO Vancomycin HCl (Vancomycin Pharmacy To Dose) 1 each IV PKCONSULT WICHO PRN Reason: Protocol Review of Systems ROS unobtainable: due to endotracheal tube, due to mental status Exam - Constitutional Vitals: Temp Pulse Resp BP Pulse Ox 97.5 F L 145 H 33 H 82/49 97 08/21/16 12:00 08/21/16 15:00 08/21/16 15:00 08/21/16 15:00 08/21/16 15:00 Results - Labs CBC & Chem 7: 08/21/16 07:15 08/21/16 15:06 Labs: Laboratory Last Values WBC 10.7 K/mm3 (4.5-11.0) 08/21/16 07:15 RBC 4.63 M/mm3 (3.65-5.03) 08/21/16 07:15 Hgb 14.7 gm/dl (10.1-14.3) H 08/21/16 07:15 Hct 47.7 % (30.3-42.9) H 08/21/16 07:15 MCV 103 fl (79-97) H 08/21/16 07:15 MCH 32 pg (28-32) 08/21/16 07:15 MCHC 31 % (30-34) 08/21/16 07:15 RDW 15.4 % (13.2-15.2) H 08/21/16 07:15 Plt Count 87 K/mm3 (140-440) L 08/21/16 07:15 Add Manual Diff Complete 08/21/16 07:15 Total Counted 100 08/21/16 07:15 Seg Neuts % (Manual) 80.0 % (40.0-70.0) H 08/21/16 07:15 Band Neutrophils % 0 % 08/21/16 07:15 Lymphocytes % (Manual) 16.0 % (13.4-35.0) 08/21/16 07:15 Reactive Lymphs % (Man) 0 % 08/21/16 07:15 Monocytes % (Manual) 4.0 % (0.0-7.3) 08/21/16 07:15 Eosinophils % (Manual) 0 % (0.0-4.3) 08/21/16 07:15 Basophils % (Manual) 0 % (0.0-1.8) 08/21/16 07:15 Metamyelocytes % 0 % 08/21/16 07:15 Myelocytes % 0 % 08/21/16 07:15 Promyelocytes % 0 % 08/21/16 07:15 Blast Cells % 0 % 08/21/16 07:15 Nucleated RBC % Not Reportable 08/21/16 07:15 Seg Neutrophils # Man 8.6 K/mm3 (1.8-7.7) H 08/21/16 07:15 Band Neutrophils # 0.0 K/mm3 08/21/16 07:15 Lymphocytes # (Manual) 1.7 K/mm3 (1.2-5.4) 08/21/16 07:15 Abs React Lymphs (Man) 0.0 K/mm3 08/21/16 07:15 Monocytes # (Manual) 0.4 K/mm3 (0.0-0.8) 08/21/16 07:15 Eosinophils # (Manual) 0.0 K/mm3 (0.0-0.4) 08/21/16 07:15 Basophils # (Manual) 0.0 K/mm3 (0.0-0.1) 08/21/16 07:15 Metamyelocytes # 0.0 K/mm3 08/21/16 07:15 Myelocytes # 0.0 K/mm3 08/21/16 07:15 Promyelocytes # 0.0 K/mm3 08/21/16 07:15 Blast Cells # 0.0 K/mm3 08/21/16 07:15 WBC Morphology Not Reportable 08/21/16 07:15 Hypersegmented Neuts Not Reportable 08/21/16 07:15 Hyposegmented Neuts Not Reportable 08/21/16 07:15 Hypogranular Neuts Not Reportable 08/21/16 07:15 Smudge Cells Not Reportable 08/21/16 07:15 Toxic Granulation Not Reportable 08/21/16 07:15 Toxic Vacuolation Not Reportable 08/21/16 07:15 Dohle Bodies Not Reportable 08/21/16 07:15 Pelger-Huet Anomaly Not Reportable 08/21/16 07:15 Antonio Rods Not Reportable 08/21/16 07:15 Platelet Estimate Appears decreased 08/21/16 07:15 Clumped Platelets Not Reportable 08/21/16 07:15 Plt Clumps, EDTA Not Reportable 08/21/16 07:15 Large Platelets 1+ 08/21/16 07:15 Giant Platelets Not Reportable 08/21/16 07:15 Platelet Satelliting Not Reportable 08/21/16 07:15 Plt Morphology Comment Not Reportable 08/21/16 07:15 RBC Morphology Normal 08/21/16 07:15 Dimorphic RBCs Not Reportable 08/21/16 07:15 Polychromasia Not Reportable 08/21/16 07:15 Hypochromasia Not Reportable 08/21/16 07:15 Poikilocytosis Not Reportable 08/21/16 07:15 Anisocytosis Not Reportable 08/21/16 07:15 Microcytosis Not Reportable 08/21/16 07:15 Macrocytosis Not Reportable 08/21/16 07:15 Spherocytes Not Reportable 08/21/16 07:15 Pappenheimer Bodies Not Reportable 08/21/16 07:15 Sickle Cells Not Reportable 08/21/16 07:15 Target Cells Not Reportable 08/21/16 07:15 Tear Drop Cells Not Reportable 08/21/16 07:15 Ovalocytes Not Reportable 08/21/16 07:15 Helmet Cells Not Reportable 08/21/16 07:15 Molina-Ava Bodies Not Reportable 08/21/16 07:15 York Rings Not Reportable 08/21/16 07:15 Dilma Cells Not Reportable 08/21/16 07:15 Bite Cells Not Reportable 08/21/16 07:15 Crenated Cell Not Reportable 08/21/16 07:15 Elliptocytes Not Reportable 08/21/16 07:15 Acanthocytes (Spur) Not Reportable 08/21/16 07:15 Rouleaux Not Reportable 08/21/16 07:15 Hemoglobin C Crystals Not Reportable 08/21/16 07:15 Schistocytes Not Reportable 08/21/16 07:15 Malaria parasites Not Reportable 08/21/16 07:15 Micah Bodies Not Reportable 08/21/16 07:15 Hem Pathologist Commnt No 08/21/16 07:15 PT 24.5 Sec. (12.2-14.9) H 08/21/16 07:49 INR 2.20 (0.87-1.13) H 08/21/16 07:49 POC ABG pH 7.318 (7.35-7.45) L 08/21/16 08:20 POC ABG pCO2 28.2 (35-45) L 08/21/16 08:20 POC ABG pO2 504 (80-105) H 08/21/16 08:20 POC ABG HCO3 14.5 08/21/16 08:20 POC ABG Total CO2 15 08/21/16 08:20 POC ABG O2 Sat 100 08/21/16 08:20 POC ABG Base Excess -12 08/21/16 08:20 VBG pH 7.285 (7.320-7.420) L 08/21/16 07:49 FiO2 100 % 08/21/16 08:20 Sodium 168 mmol/L (137-145) H* 08/21/16 12:09 Potassium 3.8 mmol/L (3.6-5.0) 08/21/16 07:49 Chloride 133.6 mmol/L (98-107) H 08/21/16 07:49 Carbon Dioxide 16 mmol/L (22-30) L 08/21/16 07:49 Anion Gap 24 mmol/L 08/21/16 07:49 BUN 83 mg/dL (7-17) H 08/21/16 07:49 Creatinine 2.6 mg/dL (0.7-1.2) H 08/21/16 07:49 Estimated GFR 21 ml/min 08/21/16 07:49 BUN/Creatinine Ratio 31.92 % 08/21/16 07:49 Glucose 248 mg/dL (65-100) H 08/21/16 07:49 Osmolality 379 Mosm/kg 08/21/16 12:09 Lactic Acid 2.6 mmol/L (0.7-2.0) H* 08/21/16 12:09 Calcium 7.0 mg/dL (8.4-10.2) L 08/21/16 07:49 Total Bilirubin 0.9 mg/dL (0.1-1.2) 08/21/16 07:49 AST 1060 units/L (5-40) H 08/21/16 07:49 ALT 988 units/L (7-56) H 08/21/16 07:49 Alkaline Phosphatase 48 units/L (35-129) 08/21/16 07:49 Total Protein 5.6 g/dL (6.3-8.2) L 08/21/16 07:49 Albumin 2.6 g/dL (3.9-5) L 08/21/16 07:49 Albumin/Globulin Ratio 0.9 % 08/21/16 07:49 Urine Color Rocío (Yellow) 08/21/16 07:25 Urine Turbidity Turbid (Clear) 08/21/16 07:25 Urine pH 7.0 (5.0-7.0) 08/21/16 07:25 Ur Specific Greene 1.025 (1.003-1.030) 08/21/16 07:25 Urine Protein 100 mg/dl mg/dL (Negative) 08/21/16 07:25 Urine Glucose (UA) Neg mg/dL (Negative) 08/21/16 07:25 Urine Ketones Tr mg/dL (Negative) 08/21/16 07:25 Urine Blood Neg (Negative) 08/21/16 07:25 Urine Nitrite Neg (Negative) 08/21/16 07:25 Urine Bilirubin Neg (Negative) 08/21/16 07:25 Urine Urobilinogen 2.0 mg/dL (<2.0) 08/21/16 07:25 Ur Leukocyte Esterase Neg (Negative) 08/21/16 07:25 Urine WBC (Auto) > 182.0 /HPF (0.0-6.0) H 08/21/16 07:25 Urine RBC (Auto) 20.0 /HPF (0.0-6.0) 08/21/16 07:25 U Epithel Cells (Auto) 20.0 /HPF (0-13.0) H 08/21/16 07:25 Urine Bacteria (Auto) 4+ /HPF (Negative) 08/21/16 07:25 Urine WBC Clumps 1+ /HPF 08/21/16 07:25 - Imaging and Cardiology Chest x-ray: image reviewed (CHEST XRAY NEGATIVE) CT Scan - head: image reviewed (CT BRAIN NEGATIVE, ) Assessment and Plan Assessment and plan: Patient is a 36-year-old female [facility] resident with a history of quadriplegia, traumatic brain injury, anxiety, depression, previous trach, and PEG tube presently we'll presents to the ER via EMS after she was found unresponsive this morning. Musculoskeletal staff reports that patient normally speaks and is alert and oriented and a quadriplegic and previous reports describes outpatient visits aphasic at baseline. Nevertheless the patient is responded by the time the EMS arrived and patient was intubated in route and brought to the ER where she was noted to have a rectal temperature 108. unfortunately no further information can be obtained from the patient's aware asked to admit patient for further evaluation. Her last known well time was prior to midnight * Septic Shock * Hypernatremia * Dehydration * TBI * Quadraplegia * ERIC * Acute Respiratory failure with hypoxia * Coagulopathy * Thrombocytopenia * Hepatic shock syndrome PLAN: * Admit to the ICU * start on emperic antbiotics coverage, continue pressors, noriega culture * Monitor electrolyte * Start Free water replacement * Wean oxygen and Vent as tolerated * Keep map 65 over have given 3 L of fluids may require a second pressure. * Strict ins and outs and avoid nephrotoxins. * DVT and GI prophylaxis * There is no family member present to discuss case with him also discuss case with the bias cutter helper. * The high probability of a clinically significant, sudden or life threatening deterioration of the [circulatroy, Renal, liver, Neurology] system(s) required my full and direct attention, intervention and personal management. The aggregate critical care time was [45] minutes. This time is in addition to time spent performing reported procedures but includes the following: [x] Data Review and interpretation [x] Patient assessment and monitoring of vital signs [x] Documentation [x] Medication orders and management Advance Directives: Yes Plan of care discussed with patient/family: No
[2016-08-21 16:34] LABS: BUN/Creatinine Ratio 33.07; Chloride 131.3 mmol/L (98-107); Potassium 3.8 mmol/L (3.6-5.0)
[2016-08-21 16:46] LABS: Calcium 5.4 mg/dL (8.4-10.2)
[2016-08-21] MEDS: DUONEB 0.5 MG-3 MG/3 ML SOLN IH SCH ×2 (16:48→20:40)
[2016-08-21] MEDS ORDERED: ZOFRAN ONE (17:09)
[2016-08-21] MEDS ORDERED: ZOFRAN IV PRN (17:48)
[2016-08-21 18:11] LABS: ISTAT Base Excess -21; ISTAT HCO3 7.8; ISTAT PCO2 21.3 (35-45); ISTAT PH 7.174 (7.35-7.45); ISTAT PO2 193 (80-105); ISTAT SO2 99; ISTAT TCO2 8
[2016-08-21] MEDS ORDERED: NACL 0.9% 1000 ML 3,000 ML IV ONE (20:00)
[2016-08-21] MEDS ORDERED: CALCIUM GLUCONATE 1,000 MG in NACL 0.9% 100 ML IV ONE (20:00)
[2016-08-21 21:01] LABS: BUN/Creatinine Ratio 33.75; Chloride 133.9 mmol/L (98-107); Magnesium 1.7 mg/dL (1.7-2.3); Phosphorous 5.9 mg/dL (2.5-4.5); Potassium 3.7 mmol/L (3.6-5.0)
[2016-08-21 21:31] LABS: Calcium 4.8 mg/dL (8.4-10.2)
[2016-08-21 21:38] LABS: ISTAT Base Excess -22; ISTAT HCO3 7.2; ISTAT PO2 185 (80-105); ISTAT SO2 99; ISTAT TCO2 8
[2016-08-21] MEDS: SODIUM BICARBONATE 150 MEQ in D5W 1,000 ML IV SCH (21:44)
[2016-08-22] MEDS: LEVOPHED DRIP 4 MG/NS 250 ML 4 MG/250 ML BAG IV SCH ×6 (01:16→21:00)
[2016-08-22] MEDS: PITRESSin 20 UNIT in NACL 0.9% 100 ML IV SCH ×2 (01:16→18:13)
[2016-08-22] MEDS ORDERED: CALCIUM CHLORIDE 1,000 MG in NACL 0.9% 100 ML IV STA (02:18)
[2016-08-22] MEDS ORDERED: MAGNESIUM SULFATE IV STA (02:19)
[2016-08-22] MEDS ORDERED: NACL 0.9% 1000 ML 3,000 ML IV ONE (02:20)
[2016-08-22] MEDS ORDERED: SODIUM BICARBONATE IV STA (02:21)
[2016-08-22] MEDS ORDERED: MAGNESIUM SULFATE 2GM/50ML 2 GM/50 ML BAG IV ONE (03:00)
[2016-08-22] MEDS: DUONEB 0.5 MG-3 MG/3 ML SOLN IH SCH ×4 (03:37→20:09)
[2016-08-22] MEDS: SODIUM BICARBONATE 150 MEQ in D5W 1,000 ML IV SCH (04:58)
[2016-08-22 05:02] LABS: ISTAT Base Excess -19; ISTAT PCO2 17.2 (35-45); ISTAT PH 7.276 (7.35-7.45); ISTAT PO2 147 (80-105); ISTAT SO2 99; ISTAT TCO2 9
[2016-08-22 05:50] LABS: Mean Corpuscular HGB Conc 31 % (30-34); Mean Corpuscular Hemoglobin 32 pg (28-32); Mean Corpuscular Volume 102 fl (79-97); Red Blood Count 4.39 M/mm3 (3.65-5.03); Red Cell Distribution Width 15.9 % (13.2-15.2); White Blood Count 18.5 K/mm3 (4.5-11.0)
[2016-08-22 06:03] LABS: Hematocrit 44.9 % (30.3-42.9); Hemoglobin 13.9 gm/dl (10.1-14.3); Platelet Count 35 K/mm3 (140-440)
[2016-08-22 06:12] LABS: BUN/Creatinine Ratio 29.28; Chloride 127.3 mmol/L (98-107); Potassium 3.3 mmol/L (3.6-5.0)
[2016-08-22 06:15] LABS: Calcium 5.1 mg/dL (8.4-10.2)
[2016-08-22 07:53] LABS: Basophils % (Manual) 0 % (0.0-1.8); Blastocytes % (Manual) 0 %; Eosinophils % (Manual) 0 % (0.0-4.3)
[2016-08-22 08:01] LABS: Diff Status Complete; Large Platelets Few; RBC Morphology Normal
[2016-08-22 08:20] LABS: Albumin 1.4 g/dL (3.9-5); Albumin/Globulin Ratio 0.6 %; BUN/Creatinine Ratio 27.93; Bilirubin,Total 1.2 mg/dL (0.1-1.2); Chloride 121.9 mmol/L (98-107); Potassium 3.4 mmol/L (3.6-5.0); Total Protein 3.8 g/dL (6.3-8.2)
[2016-08-22 08:23] LABS: Calcium 5.2 mg/dL (8.4-10.2)
--- NOTE | 2016-08-22 08:35 | Progress Note ---
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 HEENT: Patient is intubated and has a scar to her anterior neck from a previous tracheostomy. NECK: Supple. No meningitic signs are noted. There is no adenopathy noted. CHEST/LUNGS: Clear to auscultation. Bilateral breath sounds with bagging. No respiratory effort. HEART/CARDIOVASCULAR: Regular. There is tachycardia. There is no gallop rub or murmur. ABDOMEN: Abdomen is soft, nontender. Patient has normal bowel sounds. There is no abdominal distention. G-tube in place SKIN: There is no rash. There is no edema. There is no diaphoresis. NEURO: The patient is obtunded. MUSCULOSKELETAL: Patient has contractures of all 4 extremities. - Vital Signs Vital signs: Vital Signs - 12hr 08/21/16 08/21/16 08/21/16 20:40 20:50 20:53 Temperature Pulse Rate 146 H 146 H Pulse Rate [ 146 H Anterior Bilateral] Respiratory 33 H 31 H Rate Respiratory 34 H Rate [Anterior Bilateral] Blood Pressure 246/165 87/32 O2 Sat by Pulse 100 100 Oximetry 08/21/16 08/21/16 08/21/16 21:00 21:10 21:20 Temperature Pulse Rate 149 H 152 H 154 H Pulse Rate [ Anterior Bilateral] Respiratory 34 H 25 H 33 H Rate Respiratory Rate [Anterior Bilateral] Blood Pressure 109/47 109/47 109/47 O2 Sat by Pulse 100 99 98 Oximetry 08/21/16 08/21/16 08/21/16 21:30 21:40 21:50 Temperature Pulse Rate 155 H 156 H 156 H Pulse Rate [ Anterior Bilateral] Respiratory 32 H 33 H 33 H Rate Respiratory Rate [Anterior Bilateral] Blood Pressure 107/50 107/50 107/50 O2 Sat by Pulse 98 99 98 Oximetry 08/21/16 08/21/16 08/21/16 22:00 22:10 22:20 Temperature Pulse Rate 156 H 156 H 156 H Pulse Rate [ Anterior Bilateral] Respiratory 33 H 33 H 34 H Rate Respiratory Rate [Anterior Bilateral] Blood Pressure 109/47 100/40 100/40 O2 Sat by Pulse 99 99 99 Oximetry 08/21/16 08/21/16 08/21/16 22:30 22:40 22:50 Temperature Pulse Rate 155 H 154 H 155 H Pulse Rate [ Anterior Bilateral] Respiratory 18 33 H 33 H Rate Respiratory Rate [Anterior Bilateral] Blood Pressure 100/40 87/64 87/64 O2 Sat by Pulse 98 99 99 Oximetry 08/21/16 08/21/16 08/21/16 23:00 23:10 23:20 Temperature Pulse Rate 156 H 156 H 154 H Pulse Rate [ Anterior Bilateral] Respiratory 33 H Rate Respiratory Rate [Anterior Bilateral] Blood Pressure 140/99 140/99 140/99 O2 Sat by Pulse 98 Oximetry 08/21/16 08/21/16 08/21/16 23:30 23:40 23:50 Temperature Pulse Rate 155 H 156 H 156 H Pulse Rate [ Anterior Bilateral] Respiratory 31 H 35 H 33 H Rate Respiratory Rate [Anterior Bilateral] Blood Pressure 140/99 140/99 109/45 O2 Sat by Pulse 98 Oximetry 08/21/16 08/22/16 08/22/16 23:57 00:00 00:10 Temperature 100.5 F H Pulse Rate 155 H 155 H 155 H Pulse Rate [ Anterior Bilateral] Respiratory 33 H 33 H Rate Respiratory Rate [Anterior Bilateral] Blood Pressure 109/45 111/57 111/57 O2 Sat by Pulse 98 99 98 Oximetry 08/22/16 08/22/16 08/22/16 00:20 00:30 00:40 Temperature Pulse Rate 155 H 155 H 156 H Pulse Rate [ Anterior Bilateral] Respiratory 32 H 34 H 33 H Rate Respiratory Rate [Anterior Bilateral] Blood Pressure 111/57 109/60 109/60 O2 Sat by Pulse 98 98 97 Oximetry 08/22/16 08/22/16 08/22/16 00:50 01:00 01:10 Temperature Pulse Rate 152 H 153 H 153 H Pulse Rate [ Anterior Bilateral] Respiratory 33 H 33 H 32 H Rate Respiratory Rate [Anterior Bilateral] Blood Pressure 109/60 109/60 112/36 O2 Sat by Pulse 97 98 99 Oximetry 08/22/16 08/22/16 08/22/16 01:20 01:30 01:40 Temperature Pulse Rate 154 H 152 H 154 H Pulse Rate [ Anterior Bilateral] Respiratory 32 H 33 H 33 H Rate Respiratory Rate [Anterior Bilateral] Blood Pressure 112/36 112/36 107/40 O2 Sat by Pulse 98 98 99 Oximetry 08/22/16 08/22/16 08/22/16 01:50 02:00 02:10 Temperature Pulse Rate 155 H 155 H 155 H Pulse Rate [ Anterior Bilateral] Respiratory 32 H 33 H 34 H Rate Respiratory Rate [Anterior Bilateral] Blood Pressure 107/40 107/40 108/46 O2 Sat by Pulse 98 98 98 Oximetry 08/22/16 08/22/16 08/22/16 02:20 02:30 02:40 Temperature Pulse Rate 156 H 148 H 148 H Pulse Rate [ Anterior Bilateral] Respiratory 33 H 33 H 32 H Rate Respiratory Rate [Anterior Bilateral] Blood Pressure 108/46 108/46 108/46 O2 Sat by Pulse 98 98 96 Oximetry 08/22/16 08/22/16 08/22/16 02:50 03:00 03:10 Temperature Pulse Rate 146 H 146 H 144 H Pulse Rate [ Anterior Bilateral] Respiratory 34 H 31 H 33 H Rate Respiratory Rate [Anterior Bilateral] Blood Pressure 108/47 108/47 59/40 O2 Sat by Pulse 100 100 100 Oximetry 08/22/16 08/22/16 08/22/16 03:20 03:30 03:32 Temperature Pulse Rate 143 H 142 H 142 H Pulse Rate [ 140 H Anterior Bilateral] Respiratory 34 H 34 H Rate Respiratory 32 H Rate [Anterior Bilateral] Blood Pressure 59/40 59/40 124/64 O2 Sat by Pulse 100 100 100 Oximetry 08/22/16 08/22/16 08/22/16 03:40 03:50 04:00 Temperature 99.8 F H Pulse Rate 142 H 143 H 145 H Pulse Rate [ 140 H Anterior Bilateral] Respiratory 34 H 34 H 34 H Rate Respiratory 34 H Rate [Anterior Bilateral] Blood Pressure 125/75 125/75 125/75 O2 Sat by Pulse 100 100 99 Oximetry 08/22/16 08/22/16 08/22/16 04:10 04:20 04:30 Temperature Pulse Rate 147 H 148 H 150 H Pulse Rate [ Anterior Bilateral] Respiratory 34 H 34 H 34 H Rate Respiratory Rate [Anterior Bilateral] Blood Pressure 180/148 180/148 180/148 O2 Sat by Pulse 97 78 L 95 Oximetry 08/22/16 08/22/16 08/22/16 04:40 04:50 05:00 Temperature Pulse Rate 148 H 148 H 150 H Pulse Rate [ Anterior Bilateral] Respiratory 34 H 33 H 34 H Rate Respiratory Rate [Anterior Bilateral] Blood Pressure 121/67 121/67 124/79 O2 Sat by Pulse 98 99 91 Oximetry 08/22/16 08/22/16 08:06 08:16 Temperature Pulse Rate 91 H Pulse Rate [ 91 H Anterior Bilateral] Respiratory Rate Respiratory 18 Rate [Anterior Bilateral] Blood Pressure 146/87 O2 Sat by Pulse 94 Oximetry - Lab 08/22/16 05:35 08/22/16 07:15 Most recent lab results Calcium 5.2 mg/dL (8.4-10.2) L* 08/22/16 07:15 Phosphorus 5.9 mg/dL (2.5-4.5) H 08/21/16 20:25 Magnesium 1.7 mg/dL (1.7-2.3) 08/21/16 20:25
[2016-08-22] MEDS ORDERED: KCL 20MEQ/100ML 20 MEQ/100 ML BAG IV ONE (09:00)
--- NOTE | 2016-08-22 09:28 | XRay Report ---
Portable chest: Comparison is made to the prior study of August 21. Endotracheal tube and right jugular central venous lines remain in good positions. The lungs are still clear and the mediastinal contour is unremarkable. Impression: No acute change.
[2016-08-22] MEDS: HEPARIN SUB-Q SCH (09:29)
[2016-08-22] MEDS ORDERED: VANCOMYCIN/NS 1 GM/250 ML 1 GM/250 ML BAG IV ONE (10:00)
[2016-08-22] MEDS: NACL 0.9% 1000 ML 1,000 ML IV SCH ×3 (11:00→20:45)
--- NOTE | 2016-08-22 11:17 | Progress Note ---
Assessment and Plan 36 y/o female with acute respiratory failure, shock, most likely secondary to volume depletion, severe hypernatremia and acute renal failure, fever with concern for UTI. 1. Continue aggressive fluid replacement, goal is to get CVP 10-12 2. Worsening lactic acid, with abdominal distention and lack of bowel sounds. Will obtain stat CT ABD/Pelvis with oral contrast only. Spoke with LEANNE's daughter on the phone to update her on our concerns for ischemic bowel. 3. Repeat Chemistry at 14:00 today. 4. Follow up on ID recs if any 5. Continue vent support, no changes. Unable to change pH with vent as the is a metabolic derangement. 6. Agree with renal recs 7. Elevated transaminases are likely from shock as well, will repeat, coagulopathy is likely secondary to this as well, will check INR again today. 8. Continue to trend out lactic acids 9. Follow up cultures taken from ED Long discussion with LEANNE, patient is critically ill and very unstable. Very small window to obtain CT of ABD/PELV so will go very soon. CCT 31 minutes. Subjective Date of service: 08/22/16 Principal diagnosis: edmundo, sepsis Interval history: Despite aggressive resusicitation, patient remains severely volume deplete. Acidemia is improving but lactic acid is worsening, most likely secondary to impaired clearance. LFT's are improving. Vasopressor requirement is improving. No family at bedside but per CM there is a POA. Fever curve also trending down. Renal following as well. Objective - Constitutional Vitals: Vital Signs - 12hr 08/21/16 08/21/16 08/21/16 23:20 23:30 23:40 Temperature Pulse Rate 154 H 155 H 156 H Pulse Rate [ Anterior Bilateral] Respiratory 31 H 35 H Rate Respiratory Rate [Anterior Bilateral] Blood Pressure 140/99 140/99 140/99 O2 Sat by Pulse Oximetry 08/21/16 08/21/16 08/22/16 23:50 23:57 00:00 Temperature 100.5 F H Pulse Rate 156 H 155 H 155 H Pulse Rate [ Anterior Bilateral] Respiratory 33 H 33 H Rate Respiratory Rate [Anterior Bilateral] Blood Pressure 109/45 109/45 111/57 O2 Sat by Pulse 98 98 99 Oximetry 08/22/16 08/22/16 08/22/16 00:10 00:20 00:30 Temperature Pulse Rate 155 H 155 H 155 H Pulse Rate [ Anterior Bilateral] Respiratory 33 H 32 H 34 H Rate Respiratory Rate [Anterior Bilateral] Blood Pressure 111/57 111/57 109/60 O2 Sat by Pulse 98 98 98 Oximetry 08/22/16 08/22/16 08/22/16 00:40 00:50 01:00 Temperature Pulse Rate 156 H 152 H 153 H Pulse Rate [ Anterior Bilateral] Respiratory 33 H 33 H 33 H Rate Respiratory Rate [Anterior Bilateral] Blood Pressure 109/60 109/60 109/60 O2 Sat by Pulse 97 97 98 Oximetry 08/22/16 08/22/16 08/22/16 01:10 01:20 01:30 Temperature Pulse Rate 153 H 154 H 152 H Pulse Rate [ Anterior Bilateral] Respiratory 32 H 32 H 33 H Rate Respiratory Rate [Anterior Bilateral] Blood Pressure 112/36 112/36 112/36 O2 Sat by Pulse 99 98 98 Oximetry 08/22/16 08/22/16 08/22/16 01:40 01:50 02:00 Temperature Pulse Rate 154 H 155 H 155 H Pulse Rate [ Anterior Bilateral] Respiratory 33 H 32 H 33 H Rate Respiratory Rate [Anterior Bilateral] Blood Pressure 107/40 107/40 107/40 O2 Sat by Pulse 99 98 98 Oximetry 08/22/16 08/22/16 08/22/16 02:10 02:20 02:30 Temperature Pulse Rate 155 H 156 H 148 H Pulse Rate [ Anterior Bilateral] Respiratory 34 H 33 H 33 H Rate Respiratory Rate [Anterior Bilateral] Blood Pressure 108/46 108/46 108/46 O2 Sat by Pulse 98 98 98 Oximetry 08/22/16 08/22/16 08/22/16 02:40 02:50 03:00 Temperature Pulse Rate 148 H 146 H 146 H Pulse Rate [ Anterior Bilateral] Respiratory 32 H 34 H 31 H Rate Respiratory Rate [Anterior Bilateral] Blood Pressure 108/46 108/47 108/47 O2 Sat by Pulse 96 100 100 Oximetry 08/22/16 08/22/16 08/22/16 03:10 03:20 03:30 Temperature Pulse Rate 144 H 143 H 142 H Pulse Rate [ Anterior Bilateral] Respiratory 33 H 34 H 34 H Rate Respiratory Rate [Anterior Bilateral] Blood Pressure 59/40 59/40 59/40 O2 Sat by Pulse 100 100 100 Oximetry 08/22/16 08/22/16 08/22/16 03:32 03:40 03:50 Temperature Pulse Rate 142 H 142 H 143 H Pulse Rate [ 140 H 140 H Anterior Bilateral] Respiratory 34 H 34 H Rate Respiratory 32 H 34 H Rate [Anterior Bilateral] Blood Pressure 124/64 125/75 125/75 O2 Sat by Pulse 100 100 100 Oximetry 08/22/16 08/22/16 08/22/16 04:00 04:10 04:20 Temperature 99.8 F H Pulse Rate 145 H 147 H 148 H Pulse Rate [ Anterior Bilateral] Respiratory 34 H 34 H 34 H Rate Respiratory Rate [Anterior Bilateral] Blood Pressure 125/75 180/148 180/148 O2 Sat by Pulse 99 97 78 L Oximetry 08/22/16 08/22/16 08/22/16 04:30 04:40 04:50 Temperature Pulse Rate 150 H 148 H 148 H Pulse Rate [ Anterior Bilateral] Respiratory 34 H 34 H 33 H Rate Respiratory Rate [Anterior Bilateral] Blood Pressure 180/148 121/67 121/67 O2 Sat by Pulse 95 98 99 Oximetry 08/22/16 08/22/16 08/22/16 05:00 08:00 08:06 Temperature 98.3 F Pulse Rate 150 H 91 H Pulse Rate [ Anterior Bilateral] Respiratory 34 H Rate Respiratory Rate [Anterior Bilateral] Blood Pressure 124/79 146/87 O2 Sat by Pulse 91 94 Oximetry 08/22/16 08/22/16 08:16 08:45 Temperature Pulse Rate Pulse Rate [ 91 H 91 H Anterior Bilateral] Respiratory Rate Respiratory 18 25 H Rate [Anterior Bilateral] Blood Pressure O2 Sat by Pulse Oximetry General appearance: Present: other (unresponsive, orally intubated and not on sedation. Critically ill) - Neck Neck: supple - Respiratory Respiratory: bilateral: CTA - Breasts Breasts: deferred - Cardiovascular Rhythm: regular (sinus tach at times) Heart Sounds: Present: S1 & S2 - Gastrointestinal General gastrointestinal: Present: distended, absent bowel sounds, other (does not appear tender but patient is not responsive) Rectal Exam: deferred - Genitourinary Female genitourinary: deferred - Musculoskeletal Musculoskeletal: other (does not move) - Neurologic Neurologic: other (unable to assess) - Psychiatric Psychiatric: other (unable to assess) - Labs CBC & Chem 7: 08/22/16 05:35 08/22/16 07:15 Labs: Abnormal lab results 08/21/16 08/21/1617 Range/Units 12:09 12:09 15:06 WBC (4.5-11.0) K/mm3 Hct (30.3-42.9) % MCV (79-97) fl RDW (13.2-15.2) % Plt Count (140-440) K/mm3 Seg Neuts % (Manual) (40.0-70.0) % Lymphocytes % (Manual) (13.4-35.0) % POC ABG pH (7.35-7.45) POC ABG pCO2 (35-45) POC ABG pO2 (80-105) Sodium 168 H* (137-145) mmol/L Potassium (3.6-5.0) mmol/L Chloride (98-107) mmol/L Carbon Dioxide (22-30) mmol/L BUN (7-17) mg/dL Creatinine (0.7-1.2) mg/dL Glucose (65-100) mg/dL Lactic Acid 2.6 H* 3.2 H* (0.7-2.0) mmol/L Calcium (8.4-10.2) mg/dL Phosphorus (2.5-4.5) mg/dL AST (5-40) units/L ALT (7-56) units/L Total Protein (6.3-8.2) g/dL Albumin (3.9-5) g/dL 08/21/16 08/21/16 08/21/16 Range/Units 15:06 16:06 18:07 WBC (4.5-11.0) K/mm3 Hct (30.3-42.9) % MCV (79-97) fl RDW (13.2-15.2) % Plt Count (140-440) K/mm3 Seg Neuts % (Manual) (40.0-70.0) % Lymphocytes % (Manual) (13.4-35.0) % POC ABG pH 7.174 L (7.35-7.45) POC ABG pCO2 21.3 L (35-45) POC ABG pO2 193 H (80-105) Sodium 166 H* 166 H* (137-145) mmol/L Potassium (3.6-5.0) mmol/L Chloride 131.3 H (98-107) mmol/L Carbon Dioxide 10 L (22-30) mmol/L BUN 86 H (7-17) mg/dL Creatinine 2.6 H (0.7-1.2) mg/dL Glucose 183 H (65-100) mg/dL Lactic Acid (0.7-2.0) mmol/L Calcium 5.4 L* D (8.4-10.2) mg/dL Phosphorus (2.5-4.5) mg/dL AST (5-40) units/L ALT (7-56) units/L Total Protein (6.3-8.2) g/dL Albumin (3.9-5) g/dL 08/21/16 08/21/16 08/21/16 Range/Units 20:25 20:25 21:20 WBC (4.5-11.0) K/mm3 Hct (30.3-42.9) % MCV (79-97) fl RDW (13.2-15.2) % Plt Count (140-440) K/mm3 Seg Neuts % (Manual) (40.0-70.0) % Lymphocytes % (Manual) (13.4-35.0) % POC ABG pH 7.140 L (7.35-7.45) POC ABG pCO2 21.0 L (35-45) POC ABG pO2 185 H (80-105) Sodium 166 H* (137-145) mmol/L Potassium (3.6-5.0) mmol/L Chloride 133.9 H (98-107) mmol/L Carbon Dioxide 8 L* (22-30) mmol/L BUN 81 H (7-17) mg/dL Creatinine 2.4 H (0.7-1.2) mg/dL Glucose 169 H (65-100) mg/dL Lactic Acid 4.4 H* (0.7-2.0) mmol/L Calcium 4.8 L* (8.4-10.2) mg/dL Phosphorus 5.9 H (2.5-4.5) mg/dL AST (5-40) units/L ALT (7-56) units/L Total Protein (6.3-8.2) g/dL Albumin (3.9-5) g/dL 08/22/16 08/22/16 08/22/16 Range/Units 00:00 00:30 04:42 WBC (4.5-11.0) K/mm3 Hct (30.3-42.9) % MCV (79-97) fl RDW (13.2-15.2) % Plt Count (140-440) K/mm3 Seg Neuts % (Manual) (40.0-70.0) % Lymphocytes % (Manual) (13.4-35.0) % POC ABG pH 7.276 L (7.35-7.45) POC ABG pCO2 17.2 L (35-45) POC ABG pO2 147 H (80-105) Sodium 163 H* (137-145) mmol/L Potassium (3.6-5.0) mmol/L Chloride (98-107) mmol/L Carbon Dioxide (22-30) mmol/L BUN (7-17) mg/dL Creatinine (0.7-1.2) mg/dL Glucose (65-100) mg/dL Lactic Acid 6.6 H* (0.7-2.0) mmol/L Calcium (8.4-10.2) mg/dL Phosphorus (2.5-4.5) mg/dL AST (5-40) units/L ALT (7-56) units/L Total Protein (6.3-8.2) g/dL Albumin (3.9-5) g/dL 08/22/16 08/22/16 08/22/16 Range/Units 05:35 05:35 05:35 WBC 18.5 H (4.5-11.0) K/mm3 Hct 44.9 H (30.3-42.9) % MCV 102 H (79-97) fl RDW 15.9 H (13.2-15.2) % Plt Count 35 L (140-440) K/mm3 Seg Neuts % (Manual) 35.0 L (40.0-70.0) % Lymphocytes % (Manual) 11 L (13.4-35.0) % POC ABG pH (7.35-7.45) POC ABG pCO2 (35-45) POC ABG pO2 (80-105) Sodium 166 H* (137-145) mmol/L Potassium 3.3 L (3.6-5.0) mmol/L Chloride 127.3 H (98-107) mmol/L Carbon Dioxide 9 L* (22-30) mmol/L BUN 82 H (7-17) mg/dL Creatinine 2.8 H (0.7-1.2) mg/dL Glucose 209 H (65-100) mg/dL Lactic Acid 7.4 H* (0.7-2.0) mmol/L Calcium 5.1 L* (8.4-10.2) mg/dL Phosphorus (2.5-4.5) mg/dL AST (5-40) units/L ALT (7-56) units/L Total Protein (6.3-8.2) g/dL Albumin (3.9-5) g/dL 08/22/16 Range/Units 07:15 WBC (4.5-11.0) K/mm3 Hct (30.3-42.9) % MCV (79-97) fl RDW (13.2-15.2) % Plt Count (140-440) K/mm3 Seg Neuts % (Manual) (40.0-70.0) % Lymphocytes % (Manual) (13.4-35.0) % POC ABG pH (7.35-7.45) POC ABG pCO2 (35-45) POC ABG pO2 (80-105) Sodium 158 H (137-145) mmol/L Potassium 3.4 L (3.6-5.0) mmol/L Chloride 121.9 H (98-107) mmol/L Carbon Dioxide 10 L (22-30) mmol/L BUN 81 H (7-17) mg/dL Creatinine 2.9 H (0.7-1.2) mg/dL Glucose 213 H (65-100) mg/dL Lactic Acid (0.7-2.0) mmol/L Calcium 5.2 L* (8.4-10.2) mg/dL Phosphorus (2.5-4.5) mg/dL AST 335 H (5-40) units/L ALT 350 H (7-56) units/L Total Protein 3.8 L D (6.3-8.2) g/dL Albumin 1.4 L (3.9-5) g/dL - Imaging and cardiology EKG: image reviewed (clear)
[2016-08-22] MEDS: D5W IV SCH ×2 (11:26→21:00)
[2016-08-22] MEDS: KCL IV SCH ×2 (11:26→21:00)
[2016-08-22] MEDS: SODIUM BICARBONATE IV SCH ×2 (11:26→21:00)
[2016-08-22] MEDS: ZOSYN/NS 2.25 GM/50ML 2.25 GM/50 ML BAG IV SCH ×2 (12:15→18:13)
--- NOTE | 2016-08-22 15:13 | Cat Scan Report ---
CT ABDOMEN PELVIS WITHOUT CONTRAST HISTORY: Abdominal pain, elevated lactic acid, no bowel sounds. TECHNIQUE: Helical CT without IV contrast. Oral contrast was administered. FINDINGS: No relevant comparison. There appears to be pneumatosis involving multiple small bowel loops in the lower abdomen. There appears to be sparing of the colon. Ischemic bowel should be considered in this patient. There is no evidence for free air or abscess. Bowel loops are fluid filled and nondilated. Moderate stool in the rectum. A PEG tube terminates in the stomach. There is a moderate degree of ascites in the pelvis and surrounding the liver and spleen. Heart size is borderline. Small bilateral pleural effusions and bibasilar atelectasis are noted. There is a The liver, biliary system, pancreas, spleen, left kidney and adrenal glands are unremarkable. A nonobstructing staghorn calculus is noted in the right kidney. The bladder is decompressed with a Sterling catheter. The uterus and adnexa are grossly normal. IMPRESSION: Pneumatosis of multiple small bowel loops is identified concerning for ischemic bowel. Moderate ascites and small bilateral pleural effusions. Staghorn calculus in the right kidney, nonobstructing. These findings were relayed to the patient's RN, Amarilis, in [facility]1 at [address] Box was paged.
--- NOTE | 2016-08-22 15:17 | Progress Note ---
Hospitalist Physical - Constitutional Vitals: Temp Pulse Resp BP Pulse Ox 97.3 F L 148 H 24 115/41 98 08/22/16 12:00 08/22/16 13:52 08/22/16 13:51 08/22/16 13:52 08/22/16 13:52 General appearance: Present: other (unresponsive, orally intubated and not on sedation. Critically ill) Results - Labs CBC & Chem 7: 08/22/16 05:35 08/22/16 07:15 Labs: Laboratory Last Values WBC 18.5 K/mm3 (4.5-11.0) H 08/22/16 05:35 RBC 4.39 M/mm3 (3.65-5.03) 08/22/16 05:35 Hgb 13.9 gm/dl (10.1-14.3) 08/22/16 05:35 Hct 44.9 % (30.3-42.9) H 08/22/16 05:35 MCV 102 fl (79-97) H 08/22/16 05:35 MCH 32 pg (28-32) 08/22/16 05:35 MCHC 31 % (30-34) 08/22/16 05:35 RDW 15.9 % (13.2-15.2) H 08/22/16 05:35 Plt Count 35 K/mm3 (140-440) L 08/22/16 05:35 Add Manual Diff Complete 08/22/16 05:35 Total Counted 100 08/22/16 05:35 Seg Neuts % (Manual) 35.0 % (40.0-70.0) L 08/22/16 05:35 Band Neutrophils % 35 % 08/22/16 05:35 Lymphocytes % (Manual) 11 % (13.4-35.0) L 08/22/16 05:35 Reactive Lymphs % (Man) 0 % 08/22/16 05:35 Monocytes % (Manual) 4.0 % (0.0-7.3) 08/22/16 05:35 Eosinophils % (Manual) 0 % (0.0-4.3) 08/22/16 05:35 Basophils % (Manual) 0 % (0.0-1.8) 08/22/16 05:35 Metamyelocytes % 13.0 % 08/22/16 05:35 Myelocytes % 2.0 % 08/22/16 05:35 Promyelocytes % 0 % 08/22/16 05:35 Blast Cells % 0 % 08/22/16 05:35 Nucleated RBC % Not Reportable 08/22/16 05:35 Seg Neutrophils # Man 6.5 K/mm3 (1.8-7.7) 08/22/16 05:35 Band Neutrophils # 6.8 K/mm3 08/22/16 05:35 Lymphocytes # (Manual) 1.7 K/mm3 (1.2-5.4) 08/22/16 05:35 Abs React Lymphs (Man) 0.0 K/mm3 08/22/16 05:35 Monocytes # (Manual) 0.7 K/mm3 (0.0-0.8) 08/22/16 05:35 Eosinophils # (Manual) 0.0 K/mm3 (0.0-0.4) 08/22/16 05:35 Basophils # (Manual) 0.0 K/mm3 (0.0-0.1) 08/22/16 05:35 Metamyelocytes # 2.4 K/mm3 08/22/16 05:35 Myelocytes # 0.4 K/mm3 08/22/16 05:35 Promyelocytes # 0.0 K/mm3 08/22/16 05:35 Blast Cells # 0.0 K/mm3 08/22/16 05:35 Pathologist Review 08/22/16 05:35 WBC Morphology Not Reportable 08/22/16 05:35 Hypersegmented Neuts Not Reportable 08/22/16 05:35 Hyposegmented Neuts Not Reportable 08/22/16 05:35 Hypogranular Neuts Not Reportable 08/22/16 05:35 Smudge Cells Not Reportable 08/22/16 05:35 Toxic Granulation Not Reportable 08/22/16 05:35 Toxic Vacuolation Not Reportable 08/22/16 05:35 Dohle Bodies Not Reportable 08/22/16 05:35 Pelger-Huet Anomaly Not Reportable 08/22/16 05:35 Antonio Rods Not Reportable 08/22/16 05:35 Platelet Estimate Not Reportable 08/22/16 05:35 Clumped Platelets Not Reportable 08/22/16 05:35 Plt Clumps, EDTA Not Reportable 08/22/16 05:35 Large Platelets Few 08/22/16 05:35 Giant Platelets Not Reportable 08/22/16 05:35 Platelet Satelliting Not Reportable 08/22/16 05:35 Plt Morphology Comment Not Reportable 08/22/16 05:35 RBC Morphology Normal 08/22/16 05:35 Dimorphic RBCs Not Reportable 08/22/16 05:35 Polychromasia Not Reportable 08/22/16 05:35 Hypochromasia Not Reportable 08/22/16 05:35 Poikilocytosis Not Reportable 08/22/16 05:35 Anisocytosis Not Reportable 08/22/16 05:35 Microcytosis Not Reportable 08/22/16 05:35 Macrocytosis Not Reportable 08/22/16 05:35 Spherocytes Not Reportable 08/22/16 05:35 Pappenheimer Bodies Not Reportable 08/22/16 05:35 Sickle Cells Not Reportable 08/22/16 05:35 Target Cells Not Reportable 08/22/16 05:35 Tear Drop Cells Not Reportable 08/22/16 05:35 Ovalocytes Not Reportable 08/22/16 05:35 Helmet Cells Not Reportable 08/22/16 05:35 Mol[place] Bodies Not Reportable 08/22/16 05:35 [place] Rings Not Reportable 08/22/16 05:35 Dilma Cells Not Reportable 08/22/16 05:35 Bite Cells Not Reportable 08/22/16 05:35 Crenated Cell Not Reportable 08/22/16 05:35 Elliptocytes Not Reportable 08/22/16 05:35 Acanthocytes (Spur) Not Reportable 08/22/16 05:35 Rouleaux Not Reportable 08/22/16 05:35 Hemoglobin C Crystals Not Reportable 08/22/16 05:35 Schistocytes Not Reportable 08/22/16 05:35 Malaria parasites Not Reportable 08/22/16 05:35 Micah Bodies Not Reportable 08/22/16 05:35 Hem Pathologist Commnt Sent to pathology 08/22/16 05:35 PT 24.5 Sec. (12.2-14.9) H 08/21/16 07:49 INR 2.20 (0.87-1.13) H 08/21/16 07:49 POC ABG pH 7.276 (7.35-7.45) L 08/22/16 04:42 POC ABG pCO2 17.2 (35-45) L 08/22/16 04:42 POC ABG pO2 147 (80-105) H 08/22/16 04:42 POC ABG HCO3 8.0 08/22/16 04:42 POC ABG Total CO2 9 08/22/16 04:42 POC ABG O2 Sat 99 08/22/16 04:42 POC ABG Base Excess -19 08/22/16 04:42 VBG pH 7.285 (7.320-7.420) L 08/21/16 07:49 FiO2 35 % 08/22/16 04:42 Sodium 158 mmol/L (137-145) H 08/22/16 07:15 Potassium 3.4 mmol/L (3.6-5.0) L 08/22/16 07:15 Chloride 121.9 mmol/L (98-107) H 08/22/16 07:15 Carbon Dioxide 10 mmol/L (22-30) L 08/22/16 07:15 Anion Gap 30 mmol/L 08/22/16 07:15 BUN 81 mg/dL (7-17) H 08/22/16 07:15 Creatinine 2.9 mg/dL (0.7-1.2) H 08/22/16 07:15 Estimated GFR 18 ml/min 08/22/16 07:15 BUN/Creatinine Ratio 27.93 % 08/22/16 07:15 Glucose 213 mg/dL (65-100) H 08/22/16 07:15 Osmolality 379 Mosm/kg 08/21/16 12:09 Lactic Acid 7.4 mmol/L (0.7-2.0) H* 08/22/16 05:35 Calcium 5.2 mg/dL (8.4-10.2) L* 08/22/16 07:15 Phosphorus 5.9 mg/dL (2.5-4.5) H 08/21/16 20:25 Magnesium 1.7 mg/dL (1.7-2.3) 08/21/16 20:25 Total Bilirubin 1.2 mg/dL (0.1-1.2) 08/22/16 07:15 AST 335 units/L (5-40) H 08/22/16 07:15 ALT 350 units/L (7-56) H 08/22/16 07:15 Alkaline Phosphatase 53 units/L (35-129) 08/22/16 07:15 Total Protein 3.8 g/dL (6.3-8.2) L D 08/22/16 07:15 Albumin 1.4 g/dL (3.9-5) L 08/22/16 07:15 Albumin/Globulin Ratio 0.6 % 08/22/16 07:15 Urine Color [place] (Yellow) 08/21/16 07:25 Urine Turbidity Turbid (Clear) 08/21/16 07:25 Urine pH 7.0 (5.0-7.0) 08/21/16 07:25 Ur Specific [place] 1.025 (1.003-1.030) 08/21/16 07:25 Urine Protein 100 mg/dl mg/dL (Negative) 08/21/16 07:25 Urine Glucose (UA) Neg mg/dL (Negative) 08/21/16 07:25 Urine Ketones Tr mg/dL (Negative) 08/21/16 07:25 Urine Blood Neg (Negative) 08/21/16 07:25 Urine Nitrite Neg (Negative) 08/21/16 07:25 Urine Bilirubin Neg (Negative) 08/21/16 07:25 Urine Urobilinogen 2.0 mg/dL (<2.0) 08/21/16 07:25 Ur Leukocyte Esterase Neg (Negative) 08/21/16 07:25 Urine WBC (Auto) > 182.0 /HPF (0.0-6.0) H 08/21/16 07:25 Urine RBC (Auto) 20.0 /HPF (0.0-6.0) 08/21/16 07:25 U Epithel Cells (Auto) 20.0 /HPF (0-13.0) H 08/21/16 07:25 Urine Bacteria (Auto) 4+ /HPF (Negative) 08/21/16 07:25 Urine WBC Clumps 1+ /HPF 08/21/16 07:25 Urine Osmolality 600 Mosm/kg 08/21/16 07:25
[2016-08-22] MEDS ORDERED: HEPARIN/ 0.45% NACL-25,000 UNIT/500 ML 25,000 UNIT/500 ML BAG IV SCH (16:00)
--- NOTE | 2016-08-22 16:18 | Progress Note ---
Assessment and Plan Assessment and plan: Patient is a 36-year-old female retirement resident with a history of quadriplegia, traumatic brain injury, anxiety, depression, previous trach, and PEG tube presently we'll presents to the ER via EMS after she was found unresponsive this morning. Musculoskeletal staff reports that patient normally speaks and is alert and oriented and a quadriplegic and previous reports describes outpatient visits aphasic at baseline. Nevertheless the patient is responded by the time the EMS arrived and patient was intubated in route and brought to the ER where she was noted to have a rectal temperature 108. unfortunately no further information can be obtained from the patient's aware asked to admit patient for further evaluation. Her last known well time was prior to midnight * Septic Shock * Ischemic Bowel * Severe Hypernatremia * Dehydration * TBI * Quadraplegia * ERIC * Acute Respiratory failure with hypoxia * Coagulopathy * Thrombocytopenia * Hepatic shock syndrome PLAN: * Continue ICU care, continue aggressive fluids * Poor prognosis * start on Heparin, discussed with [facility], Consulted with surgeon and will await POA input for possible surgical intervention * remains on stable * start on empiric antibiotics coverage, continue pressors, noriega culture * Monitor electrolyte * Start Free water replacement * Wean oxygen and Vent as tolerated * Keep map 65 over have given 3 L of fluids may require a second pressure. * Strict ins and outs and avoid nephrotoxins. * DVT and GI prophylaxis * There is no family member present to discuss case with him also discuss case with the senior accounting specialist. The high probability of a clinically significant, sudden or life threatening deterioration of the [circulatory, Renal, liver, Neurology] system(s) required my full and direct attention, intervention and personal management. The aggregate critical care time was [45] minutes. This time is in addition to time spent performing reported procedures but includes the following: [x] Data Review and interpretation [x] Patient assessment and monitoring of vital signs [x] Documentation [x] Medication orders and management History Interval history: Patient seen and examined, remains unresponsive, and intubated. Hospitalist Physical - Physical exam Narrative exam: VITAL SIGNS: Reviewed. GENERAL: still intubated, unresponsive HEAD: No signs of head trauma. EYES: Pupils are equal. Extraocular motions intact. EARS: Hearing grossly intact. MOUTH: Oropharynx is normal. NECK: No adenopathy, no JVD. CHEST: Chest with clear breath sounds bilaterally. No wheezes, rales, or rhonchi. CARDIAC: Regular rate and rhythm. S1 and S2, without murmurs, gallops, or rubs. VASCULAR: No Edema. Peripheral pulses normal and equal in all extremities. ABDOMEN: No bowel sound. Distended, pegtube in place MUSCULOSKELETAL: unable to assess NEUROLOGIC EXAM: unresponsive PSYCHIATRIC: Unable to assess SKIN: No rash or lesions. - Constitutional Vitals: Temp Pulse Resp BP Pulse Ox 97.3 F L 148 H 24 115/41 98 08/22/16 12:00 08/22/16 13:52 08/22/16 13:51 08/22/16 13:52 08/22/16 13:52 General appearance: Present: other (unresponsive, orally intubated and not on sedation. Critically ill) Results - Labs CBC & Chem 7: 08/22/16 05:35 08/22/16 07:15 Labs: Laboratory Last Values WBC 18.5 K/mm3 (4.5-11.0) H 08/22/16 05:35 RBC 4.39 M/mm3 (3.65-5.03) 08/22/16 05:35 Hgb 13.9 gm/dl (10.1-14.3) 08/22/16 05:35 Hct 44.9 % (30.3-42.9) H 08/22/16 05:35 MCV 102 fl (79-97) H 08/22/16 05:35 MCH 32 pg (28-32) 08/22/16 05:35 MCHC 31 % (30-34) 08/22/16 05:35 RDW 15.9 % (13.2-15.2) H 08/22/16 05:35 Plt Count 35 K/mm3 (140-440) L 08/22/16 05:35 Add Manual Diff Complete 08/22/16 05:35 Total Counted 100 08/22/16 05:35 Seg Neuts % (Manual) 35.0 % (40.0-70.0) L 08/22/16 05:35 Band Neutrophils % 35 % 08/22/16 05:35 Lymphocytes % (Manual) 11 % (13.4-35.0) L 08/22/16 05:35 Reactive Lymphs % (Man) 0 % 08/22/16 05:35 Monocytes % (Manual) 4.0 % (0.0-7.3) 08/22/16 05:35 Eosinophils % (Manual) 0 % (0.0-4.3) 08/22/16 05:35 Basophils % (Manual) 0 % (0.0-1.8) 08/22/16 05:35 Metamyelocytes % 13.0 % 08/22/16 05:35 Myelocytes % 2.0 % 08/22/16 05:35 Promyelocytes % 0 % 08/22/16 05:35 Blast Cells % 0 % 08/22/16 05:35 Nucleated RBC % Not Reportable 08/22/16 05:35 Seg Neutrophils # Man 6.5 K/mm3 (1.8-7.7) 08/22/16 05:35 Band Neutrophils # 6.8 K/mm3 08/22/16 05:35 Lymphocytes # (Manual) 1.7 K/mm3 (1.2-5.4) 08/22/16 05:35 Abs React Lymphs (Man) 0.0 K/mm3 08/22/16 05:35 Monocytes # (Manual) 0.7 K/mm3 (0.0-0.8) 08/22/16 05:35 Eosinophils # (Manual) 0.0 K/mm3 (0.0-0.4) 08/22/16 05:35 Basophils # (Manual) 0.0 K/mm3 (0.0-0.1) 08/22/16 05:35 Metamyelocytes # 2.4 K/mm3 08/22/16 05:35 Myelocytes # 0.4 K/mm3 08/22/16 05:35 Promyelocytes # 0.0 K/mm3 08/22/16 05:35 Blast Cells # 0.0 K/mm3 08/22/16 05:35 Pathologist Review 08/22/16 05:35 WBC Morphology Not Reportable 08/22/16 05:35 Hypersegmented Neuts Not Reportable 08/22/16 05:35 Hyposegmented Neuts Not Reportable 08/22/16 05:35 Hypogranular Neuts Not Reportable 08/22/16 05:35 Smudge Cells Not Reportable 08/22/16 05:35 Toxic Granulation Not Reportable 08/22/16 05:35 Toxic Vacuolation Not Reportable 08/22/16 05:35 Dohle Bodies Not Reportable 08/22/16 05:35 Pelger-Huet Anomaly Not Reportable 08/22/16 05:35 Antonio Rods Not Reportable 08/22/16 05:35 Platelet Estimate Not Reportable 08/22/16 05:35 Clumped Platelets Not Reportable 08/22/16 05:35 Plt Clumps, EDTA Not Reportable 08/22/16 05:35 Large Platelets Few 08/22/16 05:35 Giant Platelets Not Reportable 08/22/16 05:35 Platelet Satelliting Not Reportable 08/22/16 05:35 Plt Morphology Comment Not Reportable 08/22/16 05:35 RBC Morphology Normal 08/22/16 05:35 Dimorphic RBCs Not Reportable 08/22/16 05:35 Polychromasia Not Reportable 08/22/16 05:35 Hypochromasia Not Reportable 08/22/16 05:35 Poikilocytosis Not Reportable 08/22/16 05:35 Anisocytosis Not Reportable 08/22/16 05:35 Microcytosis Not Reportable 08/22/16 05:35 Macrocytosis Not Reportable 08/22/16 05:35 Spherocytes Not Reportable 08/22/16 05:35 Pappenheimer Bodies Not Reportable 08/22/16 05:35 Sickle Cells Not Reportable 08/22/16 05:35 Target Cells Not Reportable 08/22/16 05:35 Tear Drop Cells Not Reportable 08/22/16 05:35 Ovalocytes Not Reportable 08/22/16 05:35 Helmet Cells Not Reportable 08/22/16 05:35 Mol[place] Bodies Not Reportable 08/22/16 05:35 [place] Rings Not Reportable 08/22/16 05:35 Dilma Cells Not Reportable 08/22/16 05:35 Bite Cells Not Reportable 08/22/16 05:35 Crenated Cell Not Reportable 08/22/16 05:35 Elliptocytes Not Reportable 08/22/16 05:35 Acanthocytes (Spur) Not Reportable 08/22/16 05:35 Rouleaux Not Reportable 08/22/16 05:35 Hemoglobin C Crystals Not Reportable 08/22/16 05:35 Schistocytes Not Reportable 08/22/16 05:35 Malaria parasites Not Reportable 08/22/16 05:35 Micah Bodies Not Reportable 08/22/16 05:35 Hem Pathologist Commnt Sent to pathology 08/22/16 05:35 PT 24.5 Sec. (12.2-14.9) H 08/21/16 07:49 INR 2.20 (0.87-1.13) H 08/21/16 07:49 POC ABG pH 7.276 (7.35-7.45) L 08/22/16 04:42 POC ABG pCO2 17.2 (35-45) L 08/22/16 04:42 POC ABG pO2 147 (80-105) H 08/22/16 04:42 POC ABG HCO3 8.0 08/22/16 04:42 POC ABG Total CO2 9 08/22/16 04:42 POC ABG O2 Sat 99 08/22/16 04:42 POC ABG Base Excess -19 08/22/16 04:42 VBG pH 7.285 (7.320-7.420) L 08/21/16 07:49 FiO2 35 % 08/22/16 04:42 Sodium 158 mmol/L (137-145) H 08/22/16 07:15 Potassium 3.4 mmol/L (3.6-5.0) L 08/22/16 07:15 Chloride 121.9 mmol/L (98-107) H 08/22/16 07:15 Carbon Dioxide 10 mmol/L (22-30) L 08/22/16 07:15 Anion Gap 30 mmol/L 08/22/16 07:15 BUN 81 mg/dL (7-17) H 08/22/16 07:15 Creatinine 2.9 mg/dL (0.7-1.2) H 08/22/16 07:15 Estimated GFR 18 ml/min 08/22/16 07:15 BUN/Creatinine Ratio 27.93 % 08/22/16 07:15 Glucose 213 mg/dL (65-100) H 08/22/16 07:15 Osmolality 379 Mosm/kg 08/21/16 12:09 Lactic Acid 7.4 mmol/L (0.7-2.0) H* 08/22/16 05:35 Calcium 5.2 mg/dL (8.4-10.2) L* 08/22/16 07:15 Phosphorus 5.9 mg/dL (2.5-4.5) H 08/21/16 20:25 Magnesium 1.7 mg/dL (1.7-2.3) 08/21/16 20:25 Total Bilirubin 1.2 mg/dL (0.1-1.2) 08/22/16 07:15 AST 335 units/L (5-40) H 08/22/16 07:15 ALT 350 units/L (7-56) H 08/22/16 07:15 Alkaline Phosphatase 53 units/L (35-129) 08/22/16 07:15 Total Protein 3.8 g/dL (6.3-8.2) L D 08/22/16 07:15 Albumin 1.4 g/dL (3.9-5) L 08/22/16 07:15 Albumin/Globulin Ratio 0.6 % 08/22/16 07:15 Urine Color [place] (Yellow) 08/21/16 07:25 Urine Turbidity Turbid (Clear) 08/21/16 07:25 Urine pH 7.0 (5.0-7.0) 08/21/16 07:25 Ur Specific [place] 1.025 (1.003-1.030) 08/21/16 07:25 Urine Protein 100 mg/dl mg/dL (Negative) 08/21/16 07:25 Urine Glucose (UA) Neg mg/dL (Negative) 08/21/16 07:25 Urine Ketones Tr mg/dL (Negative) 08/21/16 07:25 Urine Blood Neg (Negative) 08/21/16 07:25 Urine Nitrite Neg (Negative) 08/21/16 07:25 Urine Bilirubin Neg (Negative) 08/21/16 07:25 Urine Urobilinogen 2.0 mg/dL (<2.0) 08/21/16 07:25 Ur Leukocyte Esterase Neg (Negative) 08/21/16 07:25 Urine WBC (Auto) > 182.0 /HPF (0.0-6.0) H 08/21/16 07:25 Urine RBC (Auto) 20.0 /HPF (0.0-6.0) 08/21/16 07:25 U Epithel Cells (Auto) 20.0 /HPF (0-13.0) H 08/21/16 07:25 Urine Bacteria (Auto) 4+ /HPF (Negative) 08/21/16 07:25 Urine WBC Clumps 1+ /HPF 08/21/16 07:25 Urine Osmolality 600 Mosm/kg 08/21/16 07:25 - Imaging and Cardiology CT scan - abdomen: image reviewed (concerning for ischemic bowel)
--- NOTE | 2016-08-22 17:04 | Event Note ---
Date: 08/22/16 36-year-old female with traumatic brain injury with severe aphasia and quadriparesis with ability to move the right upper extremity weakly and to blink and response to questions who developed leukocytosis since yesterday with metabolic abnormalities, on maximum dose of single processor with heart rate in the 140-150s. 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 This patient was evaluated by both myself and Dr. Grier. She has a rigid distended abdomen, and is nonresponsive, and has been nonresponsive for multiple days. She is intubated. No prior history of thromboembolic events per family at bedside, arterial or venous. Currently in sinus tachycardia. If exploratory laparotomy is required, then preprocedural CT angiogram or mesenteric angiogram should be performed. Given the patient's underlying severe comorbidities and advanced state of ischemia, comfort care may be the best option. Ultimate management decisions will be left up to Gen. surgery. Dr. Grant discussed the case with Dr. Kevan Tenorio.
[2016-08-22 17:30] LABS: Hematocrit 36.4 % (30.3-42.9); Hemoglobin 11.4 gm/dl (10.1-14.3)
[2016-08-22 17:42] LABS: INR 3.44 (0.87-1.13); Partial Thromboplastin Time 50.7 Sec. (24.2-36.6)
[2016-08-22 17:49] LABS: BUN/Creatinine Ratio 25.31; Chloride 121.4 mmol/L (98-107); Phosphorous 5.6 mg/dL (2.5-4.5); Potassium 3.5 mmol/L (3.6-5.0)
[2016-08-22] MEDS ORDERED: NACL 0.9% 500 ML 500 ML IV SCH (18:02)
[2016-08-22 18:06] LABS: Calcium 4.5 mg/dL (8.4-10.2)
--- NOTE | 2016-08-22 20:19 | Consultation ---
History of Present Illness - Reason for Consult Consult date: 08/22/16 sepsis Requesting physician: YUNG POON - History of Present Illness Patient is a 36-year-old female halfway resident with a history of quadriplegia, traumatic brain injury, anxiety, depression, previous trach, and PEG tube placement who was brought to the hospital after she was found unresponsive. Patient had a rigid abdomen and was septic with unstable vital signs. Temperature was reported to be as high as 108. CT abdomen showed pneumatosis in several loops of small bowel. Infectious disease is called for appropriate management. I saw patient at bedside. Obtunded. Unable to provide history. I reviewed all labs and ct scans. Also reviewed surgery evaluation Vital signs - unstable. Patient on vasopressors abd - rigid and silent. LABS See lab section ASSESSMENT 1. SEPTIC SHOCK 2. BOWEL ISCHEMIA 3. QUADRIPLEGIA RECOMMENDATION 1. ADD FLUCONAZOLE. 2. AGREE WITH SURGERY EVALUATION. PATIENT IS UNSTABLE FOR SURGERY 3. POOR PROGNOSIS. Past History Past Medical History: GERD, other (seizures, quadraplegia) Past Surgical History: Other (unable to obtain) Social history: other (lives at nursing facility.) Family history: other (unable to obtain) Medications and Allergies Allergies Allergy/AdvReac Type Severity Reaction Status Date / Time FORTINO Inhibitors Allergy Unknown Verified 05/31/13 11:51 Home Medications Medication Instructions Recorded Confirmed Last Taken Type Esomeprazole Magnesium [NexIUM] 40 mg FEEDTUBE QDAY 05/31/13 08/22/16 04/16/16 History Hydrocodone Bit/Acetaminophen 7.5 - 325 mg FEEDTUBE Q6H PRN 05/31/13 08/22/16 History [Lortab 7.5-500 mg] LORazepam [Ativan] 1 mg FEEDTUBE BID 05/31/13 08/22/16 04/16/16 History PHENobarbital 97.2 mg FEEDTUBE QDAY 05/31/13 08/22/16 04/16/16 History Sodium Bicarbonate 325 mg FEEDTUBE PRN PRN #30 tablet 06/02/13 08/22/16 Rx Protein Supplement [Promod] 30 ml FEEDTUBE BID 12/17/13 08/22/16 04/16/16 History Sertraline Oral Liqd(Nf) [Zoloft 50 mg FEEDTUBE QHS 12/17/13 08/22/16 04/16/16 History 20 mg/ml] LORazepam 1 ml IM Q6H PRN 08/18/14 08/22/16 04/16/16 History levETIRAcetam [Keppra ORAL LIQ] 1,000 mg FEEDTUBE BID 08/18/14 08/22/16 History Active Meds: Active Medications Acetaminophen (Tylenol) 650 mg FEEDTUBE Q6H PRN PRN Reason: Pain, Mild (1-3) Last Admin: 08/21/16 12:45 Dose: 650 mg Albuterol/Ipratropium (Duoneb 0.5 Mg-3 Mg/3 Ml Soln) 1 ampul IH Q6HRT WICHO Last Admin: 08/22/16 20:09 Dose: 1 ampul Lipase/Protease/Amylase (Pancreaze Dr 10,500 Unit) 1 each FEEDTUBE PRN PRN PRN Reason: For Clogged Feeding Tube Bisacodyl (Dulcolax) 10 mg [place] QDAY PRN PRN Reason: constipation unrelieved by MOM Hydrophilic Ointment (Vaseline Lip Therapy) 1 applic TP Q2HR PRN PRN Reason: Dry Lips Norepinephrine (Levophed Drip 4 Mg/Ns 250 Ml) 4 mg in 250 mls @ 7.5 mls/hr IV TITR WICHO; 2 MCG/MIN PRN Reason: Protocol Last Titration: 08/22/16 15:00 Dose: 10 mcg/min, 37.5 mls/hr Vasopressin 20 unit/ Sodium (Chloride) 101 mls @ 12.12 mls/hr IV TITR WICHO; 0.04 UNITS/MIN PRN Reason: Protocol Last Admin: 08/22/16 18:13 Dose: 0.04 units/min, 12.12 mls/hr Potassium Chloride 20 meq/Sodium Bicarbonate 75 meq/Dextrose 1,085 mls @ 125 mls/hr IV DIRECT WICHO Last Admin: 08/22/16 11:26 Dose: 125 mls/hr Piperacillin Sod/Tazobactam Sod (Zosyn/Ns 2.25 Gm/50ml) 2.25 gm in 50 mls @ 100 mls/hr IV Q6HR WICHO Last Admin: 08/22/16 18:13 Dose: 100 mls/hr Sodium Chloride (Nacl 0.9% 500 Ml) 500 mls @ 0 mls/hr IV ONCE WICHO PRN Reason: As Directed Stop: 08/22/16 23:00 Multi-Ingred Cream/Lotion/Oil/Oint (Artificial Tears Ophth Oint) 1 applic OU Q4HR PRN PRN Reason: Dry Eye(s) Ondansetron HCl (Zofran) 4 mg IV Q4H PRN PRN Reason: Nausea And Vomiting Simple Syrup (Simple Syrup) 15 ml FEEDTUBE PRN PRN PRN Reason: Hypoglycemia Simple Syrup (Simple Syrup) 30 ml FEEDTUBE PRN PRN PRN Reason: Hypoglycemia Sodium Bicarbonate (Sodium Bicarbonate) 325 mg FEEDTUBE PRN PRN PRN Reason: For Clogged Feeding Tube Sodium Chloride (Nacl 0.9% 500 Ml) 1 ml IV DIRECT WICHO Vancomycin HCl (Vancomycin Pharmacy To Dose) 1 each IV PKCONSULT WICHO PRN Reason: Protocol Physical Examination - Constitutional Vitals: Vital Signs Temp Pulse Resp BP Pulse Ox 100.9 F H 151 H 34 H 115/41 98 08/22/16 20:00 08/22/16 20:09 08/22/16 20:09 08/22/16 18:29 08/22/16 18:29 Temperature -Last 24 Hours Temperature 100.9 F Temperature 100.5 F Temperature 97.3 F Temperature 98.3 F Temperature 99.8 F Temperature 99.8 F Temperature 100.5 F Temperature 100.8 F Results - Labs CBC & Chem 7: 08/22/16 17:00 08/22/16 17:00 Labs: Abnormal lab results 08/21/16 08/21/16 08/21/16 Range/Units 20:25 20:25 21:20 WBC (4.5-11.0) K/mm3 Hct (30.3-42.9) % MCV (79-97) fl RDW (13.2-15.2) % Plt Count (140-440) K/mm3 Seg Neuts % (Manual) (40.0-70.0) % Lymphocytes % (Manual) (13.4-35.0) % PT (12.2-14.9) Sec. INR (0.87-1.13) APTT (24.2-36.6) Sec. POC ABG pH 7.140 L (7.35-7.45) POC ABG pCO2 21.0 L (35-45) POC ABG pO2 185 H (80-105) Sodium 166 H* (137-145) mmol/L Potassium (3.6-5.0) mmol/L Chloride 133.9 H (98-107) mmol/L Carbon Dioxide 8 L* (22-30) mmol/L BUN 81 H (7-17) mg/dL Creatinine 2.4 H (0.7-1.2) mg/dL Glucose 169 H (65-100) mg/dL Lactic Acid 4.4 H* (0.7-2.0) mmol/L Calcium 4.8 L* (8.4-10.2) mg/dL Phosphorus 5.9 H (2.5-4.5) mg/dL AST (5-40) units/L ALT (7-56) units/L Total Protein (6.3-8.2) g/dL Albumin (3.9-5) g/dL 08/22/16 08/22/16 08/22/16 Range/Units 00:00 00:30 04:42 WBC (4.5-11.0) K/mm3 Hct (30.3-42.9) % MCV (79-97) fl RDW (13.2-15.2) % Plt Count (140-440) K/mm3 Seg Neuts % (Manual) (40.0-70.0) % Lymphocytes % (Manual) (13.4-35.0) % PT (12.2-14.9) Sec. INR (0.87-1.13) APTT (24.2-36.6) Sec. POC ABG pH 7.276 L (7.35-7.45) POC ABG pCO2 17.2 L (35-45) POC ABG pO2 147 H (80-105) Sodium 163 H* (137-145) mmol/L Potassium (3.6-5.0) mmol/L Chloride (98-107) mmol/L Carbon Dioxide (22-30) mmol/L BUN (7-17) mg/dL Creatinine (0.7-1.2) mg/dL Glucose (65-100) mg/dL Lactic Acid 6.6 H* (0.7-2.0) mmol/L Calcium (8.4-10.2) mg/dL Phosphorus (2.5-4.5) mg/dL AST (5-40) units/L ALT (7-56) units/L Total Protein (6.3-8.2) g/dL Albumin (3.9-5) g/dL 08/22/16 08/22/16 08/22/16 Range/Units 05:35 05:35 05:35 WBC 18.5 H (4.5-11.0) K/mm3 Hct 44.9 H (30.3-42.9) % MCV 102 H (79-97) fl RDW 15.9 H (13.2-15.2) % Plt Count 35 L (140-440) K/mm3 Seg Neuts % (Manual) 35.0 L (40.0-70.0) % Lymphocytes % (Manual) 11 L (13.4-35.0) % PT (12.2-14.9) Sec. INR (0.87-1.13) APTT (24.2-36.6) Sec. POC ABG pH (7.35-7.45) POC ABG pCO2 (35-45) POC ABG pO2 (80-105) Sodium 166 H* (137-145) mmol/L Potassium 3.3 L (3.6-5.0) mmol/L Chloride 127.3 H (98-107) mmol/L Carbon Dioxide 9 L* (22-30) mmol/L BUN 82 H (7-17) mg/dL Creatinine 2.8 H (0.7-1.2) mg/dL Glucose 209 H (65-100) mg/dL Lactic Acid 7.4 H* (0.7-2.0) mmol/L Calcium 5.1 L* (8.4-10.2) mg/dL Phosphorus (2.5-4.5) mg/dL AST (5-40) units/L ALT (7-56) units/L Total Protein (6.3-8.2) g/dL Albumin (3.9-5) g/dL 08/22/16 08/22/16 08/22/16 Range/Units 07:15 17:00 17:00 WBC (4.5-11.0) K/mm3 Hct (30.3-42.9) % MCV (79-97) fl RDW (13.2-15.2) % Plt Count 18 L* (140-440) K/mm3 Seg Neuts % (Manual) (40.0-70.0) % Lymphocytes % (Manual) (13.4-35.0) % PT (12.2-14.9) Sec. INR (0.87-1.13) APTT (24.2-36.6) Sec. POC ABG pH (7.35-7.45) POC ABG pCO2 (35-45) POC ABG pO2 (80-105) Sodium 158 H 157 H (137-145) mmol/L Potassium 3.4 L 3.5 L (3.6-5.0) mmol/L Chloride 121.9 H 121.4 H (98-107) mmol/L Carbon Dioxide 10 L 10 L (22-30) mmol/L BUN 81 H 81 H (7-17) mg/dL Creatinine 2.9 H 3.2 H (0.7-1.2) mg/dL Glucose 213 H 155 H (65-100) mg/dL Lactic Acid (0.7-2.0) mmol/L Calcium 5.2 L* 4.5 L* (8.4-10.2) mg/dL Phosphorus 5.6 H (2.5-4.5) mg/dL AST 335 H (5-40) units/L ALT 350 H (7-56) units/L Total Protein 3.8 L D (6.3-8.2) g/dL Albumin 1.4 L (3.9-5) g/dL 08/22/16 Range/Units 17:00 WBC (4.5-11.0) K/mm3 Hct (30.3-42.9) % MCV (79-97) fl RDW (13.2-15.2) % Plt Count (140-440) K/mm3 Seg Neuts % (Manual) (40.0-70.0) % Lymphocytes % (Manual) (13.4-35.0) % PT 34.9 H (12.2-14.9) Sec. INR 3.44 H (0.87-1.13) APTT 50.7 H (24.2-36.6) Sec. POC ABG pH (7.35-7.45) POC ABG pCO2 (35-45) POC ABG pO2 (80-105) Sodium (137-145) mmol/L Potassium (3.6-5.0) mmol/L Chloride (98-107) mmol/L Carbon Dioxide (22-30) mmol/L BUN (7-17) mg/dL Creatinine (0.7-1.2) mg/dL Glucose (65-100) mg/dL Lactic Acid (0.7-2.0) mmol/L Calcium (8.4-10.2) mg/dL Phosphorus (2.5-4.5) mg/dL AST (5-40) units/L ALT (7-56) units/L Total Protein (6.3-8.2) g/dL Albumin (3.9-5) g/dL
[2016-08-22] MEDS: ZOSYN/NS 4.5GM/100ML 4.5 GM/100 ML VIAL IV SCH ×2 (20:36)
[2016-08-22] MEDS ORDERED: VANCOMYCIN/NS 1 GM/250 ML 1 GM/250 ML BAG IV SCH (21:00)
[2016-08-22] MEDS ORDERED: NACL 0.9% 250ML 250 ML IV ONE (23:27)
[2016-08-23] MEDS: ZOSYN/NS 2.25 GM/50ML 2.25 GM/50 ML BAG IV SCH ×4 (00:01→20:24)
[2016-08-23] MEDS: LEVOPHED 8 MG in NACL 0.9% 250ML 242 ML IV SCH ×5 (00:02→23:00)
[2016-08-23] MEDS: DUONEB 0.5 MG-3 MG/3 ML SOLN IH SCH ×4 (01:55→20:13)
[2016-08-23] MEDS: SODIUM BICARBONATE IV SCH ×2 (06:38→16:28)
[2016-08-23] MEDS: KCL IV SCH ×2 (06:38→16:28)
[2016-08-23] MEDS: D5W IV SCH ×2 (06:38→16:28)
[2016-08-23 07:15] LABS: BUN/Creatinine Ratio 26.96; Chloride 119.5 mmol/L (98-107); Potassium 4.2 mmol/L (3.6-5.0)
--- NOTE | 2016-08-23 07:30 | XRay Report ---
Chest: Compared to 08/22/16. History: Followup of respiratory failure. Findings: Normal cardiomediastinal silhouette. Stable support system. No consolidation, pneumothorax or pleural effusion. Impression: No acute cardiopulmonary findings.
[2016-08-23 07:35] LABS: Calcium 4.5 mg/dL (8.4-10.2)
[2016-08-23] MEDS: PITRESSin 20 UNIT in NACL 0.9% 100 ML IV SCH ×3 (08:21→23:01)
--- NOTE | 2016-08-23 09:49 | Progress Note ---
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 * Surgery consultation pending - patient w/ acute abdomen; input re: plan needed - would be appreciated and would assist in determining overall treatment plan * Abx per primary team/ID * Continue IVF * Avoid nephrotoxins * Dose medications for renal function * Prognosis is poor. Patient is not a skilled nursing candidate for renal replacement therapy * Recommend comfort care measures. Surgery evaluation pending. Subjective Date of service: 08/23/16 Principal diagnosis: eric, sepsis Interval history: No acute events overnight. Patient remains on two pressors. Objective - Vital Signs Vital signs: Vital Signs - 12hr 08/22/16 08/22/16 08/22/16 22:01 22:15 22:31 Temperature Pulse Rate 130 H 162 H 162 H Pulse Rate [ Anterior Bilateral] Pulse Rate [ From Monitor] Respiratory 36 H 36 H 35 H Rate Respiratory Rate [Anterior Bilateral] Respiratory Rate [ Generalized] Blood Pressure 115/21 120/68 86/68 O2 Sat by Pulse 99 99 99 Oximetry 08/22/16 08/22/16 08/22/16 22:45 23:01 23:15 Temperature Pulse Rate 162 H 161 H 163 H Pulse Rate [ Anterior Bilateral] Pulse Rate [ From Monitor] Respiratory 35 H 34 H 35 H Rate Respiratory Rate [Anterior Bilateral] Respiratory Rate [ Generalized] Blood Pressure 111/40 191/107 61/20 O2 Sat by Pulse 98 100 96 Oximetry 08/22/16 08/22/16 08/22/16 23:31 23:35 23:41 Temperature Pulse Rate 157 H 159 H 159 H Pulse Rate [ Anterior Bilateral] Pulse Rate [ From Monitor] Respiratory 34 H 36 H 37 H Rate Respiratory Rate [Anterior Bilateral] Respiratory Rate [ Generalized] Blood Pressure 110/50 114/64 114/64 O2 Sat by Pulse 94 96 97 Oximetry 08/22/16 08/22/16 08/22/16 23:45 23:51 23:55 Temperature Pulse Rate 160 H 159 H 158 H Pulse Rate [ Anterior Bilateral] Pulse Rate [ From Monitor] Respiratory 35 H 35 H 35 H Rate Respiratory Rate [Anterior Bilateral] Respiratory Rate [ Generalized] Blood Pressure 114/64 114/64 114/64 O2 Sat by Pulse 97 98 97 Oximetry 08/23/16 08/23/16 08/23/16 00:00 00:01 00:05 Temperature 100.3 F H Pulse Rate 158 H 159 H Pulse Rate [ Anterior Bilateral] Pulse Rate [ 159 H From Monitor] Respiratory 34 H 35 H Rate Respiratory Rate [Anterior Bilateral] Respiratory Rate [ Generalized] Blood Pressure 118/55 118/55 O2 Sat by Pulse 97 97 Oximetry 08/23/16 08/23/16 08/23/16 00:06 00:11 00:15 Temperature Pulse Rate 159 H 159 H 159 H Pulse Rate [ Anterior Bilateral] Pulse Rate [ From Monitor] Respiratory 35 H 35 H Rate Respiratory Rate [Anterior Bilateral] Respiratory Rate [ Generalized] Blood Pressure 144/86 118/55 118/55 O2 Sat by Pulse 97 97 97 Oximetry 08/23/16 08/23/16 08/23/16 00:21 00:25 00:31 Temperature Pulse Rate 156 H 156 H 157 H Pulse Rate [ Anterior Bilateral] Pulse Rate [ From Monitor] Respiratory 35 H 28 H 35 H Rate Respiratory Rate [Anterior Bilateral] Respiratory Rate [ Generalized] Blood Pressure 118/55 118/55 157/36 O2 Sat by Pulse 97 98 97 Oximetry 08/23/16 08/23/16 08/23/16 00:35 00:41 00:45 Temperature Pulse Rate 157 H 157 H 157 H Pulse Rate [ Anterior Bilateral] Pulse Rate [ From Monitor] Respiratory 35 H 35 H 34 H Rate Respiratory Rate [Anterior Bilateral] Respiratory Rate [ Generalized] Blood Pressure 120/56 120/56 120/56 O2 Sat by Pulse 97 97 98 Oximetry 08/23/16 08/23/16 08/23/16 00:51 01:00 01:07 Temperature Pulse Rate 158 H 156 H Pulse Rate [ Anterior Bilateral] Pulse Rate [ From Monitor] Respiratory 35 H 35 H Rate Respiratory Rate [Anterior Bilateral] Respiratory 35 H Rate [ Generalized] Blood Pressure 58/27 141/56 O2 Sat by Pulse 98 98 Oximetry 08/23/16 08/23/16 08/23/16 01:15 01:31 01:45 Temperature Pulse Rate 157 H 157 H 157 H Pulse Rate [ Anterior Bilateral] Pulse Rate [ From Monitor] Respiratory 36 H 35 H 35 H Rate Respiratory Rate [Anterior Bilateral] Respiratory Rate [ Generalized] Blood Pressure 125/95 106/62 125/95 O2 Sat by Pulse 98 97 97 Oximetry 08/23/16 08/23/16 08/23/16 01:55 02:01 02:05 Temperature Pulse Rate 157 H Pulse Rate [ 157 H 158 H Anterior Bilateral] Pulse Rate [ From Monitor] Respiratory 35 H Rate Respiratory 35 H 35 H Rate [Anterior Bilateral] Respiratory Rate [ Generalized] Blood Pressure 122/35 O2 Sat by Pulse 97 Oximetry 08/23/16 08/23/16 08/23/16 02:15 02:31 02:45 Temperature Pulse Rate 157 H 158 H 158 H Pulse Rate [ Anterior Bilateral] Pulse Rate [ From Monitor] Respiratory 31 H 35 H 34 H Rate Respiratory Rate [Anterior Bilateral] Respiratory Rate [ Generalized] Blood Pressure 146/37 122/53 138/40 O2 Sat by Pulse 98 98 98 Oximetry 08/23/16 08/23/16 08/23/16 03:01 03:15 03:31 Temperature Pulse Rate 157 H 157 H 156 H Pulse Rate [ Anterior Bilateral] Pulse Rate [ From Monitor] Respiratory 35 H 34 H 31 H Rate Respiratory Rate [Anterior Bilateral] Respiratory Rate [ Generalized] Blood Pressure 141/24 109/33 O2 Sat by Pulse 99 98 99 Oximetry 08/23/16 08/23/16 08/23/16 03:45 04:00 04:01 Temperature 100.5 F H Pulse Rate 155 H 155 H Pulse Rate [ Anterior Bilateral] Pulse Rate [ 155 H From Monitor] Respiratory 34 H 35 H 35 H Rate Respiratory Rate [Anterior Bilateral] Respiratory Rate [ Generalized] Blood Pressure 109/33 122/33 O2 Sat by Pulse 100 99 Oximetry 08/23/16 08/23/16 08/23/16 04:15 04:30 04:31 Temperature Pulse Rate 154 H 154 H 154 H Pulse Rate [ Anterior Bilateral] Pulse Rate [ From Monitor] Respiratory 33 H 30 H Rate Respiratory Rate [Anterior Bilateral] Respiratory Rate [ Generalized] Blood Pressure 120/50 122/33 129/75 O2 Sat by Pulse 100 97 98 Oximetry 08/23/16 08/23/16 08/23/16 04:45 05:00 05:15 Temperature Pulse Rate 153 H 152 H Pulse Rate [ Anterior Bilateral] Pulse Rate [ From Monitor] Respiratory 35 H 32 H Rate Respiratory Rate [Anterior Bilateral] Respiratory Rate [ Generalized] Blood Pressure 103/55 136/50 136/50 O2 Sat by Pulse 98 98 98 Oximetry 08/23/16 08/23/16 08/23/16 05:30 05:45 06:00 Temperature Pulse Rate 152 H 152 H 151 H Pulse Rate [ Anterior Bilateral] Pulse Rate [ From Monitor] Respiratory 35 H 35 H 30 H Rate Respiratory Rate [Anterior Bilateral] Respiratory Rate [ Generalized] Blood Pressure 106/57 110/60 112/55 O2 Sat by Pulse 99 98 99 Oximetry 08/23/16 08/23/16 08/23/16 06:15 06:31 06:45 Temperature Pulse Rate 151 H 152 H 151 H Pulse Rate [ Anterior Bilateral] Pulse Rate [ From Monitor] Respiratory 22 34 H 27 H Rate Respiratory Rate [Anterior Bilateral] Respiratory Rate [ Generalized] Blood Pressure 112/55 116/62 116/62 O2 Sat by Pulse 98 99 100 Oximetry 08/23/16 08/23/16 08/23/16 07:01 07:15 07:31 Temperature Pulse Rate 151 H 150 H 149 H Pulse Rate [ Anterior Bilateral] Pulse Rate [ From Monitor] Respiratory 31 H 33 H 28 H Rate Respiratory Rate [Anterior Bilateral] Respiratory Rate [ Generalized] Blood Pressure 113/56 113/56 131/47 O2 Sat by Pulse 99 100 100 Oximetry 08/23/16 08/23/16 08/23/16 07:45 07:55 08:01 Temperature Pulse Rate 149 H 149 H 149 H Pulse Rate [ 148 H Anterior Bilateral] Pulse Rate [ From Monitor] Respiratory 29 H 33 H Rate Respiratory 32 H Rate [Anterior Bilateral] Respiratory Rate [ Generalized] Blood Pressure 131/47 120/37 127/25 O2 Sat by Pulse 99 98 100 Oximetry 08/23/16 08/23/16 08/23/16 08:15 08:30 08:31 Temperature 100 F H Pulse Rate 149 H 152 H 154 H Pulse Rate [ Anterior Bilateral] Pulse Rate [ From Monitor] Respiratory 26 H 17 33 H Rate Respiratory Rate [Anterior Bilateral] Respiratory Rate [ Generalized] Blood Pressure 127/25 96/35 O2 Sat by Pulse 99 99 100 Oximetry 08/23/16 08/23/16 08/23/16 08:45 09:00 09:01 Temperature Pulse Rate 152 H 149 H 151 H Pulse Rate [ Anterior Bilateral] Pulse Rate [ 154 H From Monitor] Respiratory 16 29 H 29 H Rate Respiratory Rate [Anterior Bilateral] Respiratory Rate [ Generalized] Blood Pressure 111/47 115/43 115/43 O2 Sat by Pulse 100 95 99 Oximetry 08/23/16 08/23/16 09:05 09:15 Temperature 9.5 F L Pulse Rate 149 H 151 H Pulse Rate [ Anterior Bilateral] Pulse Rate [ From Monitor] Respiratory 25 H 30 H Rate Respiratory Rate [Anterior Bilateral] Respiratory Rate [ Generalized] Blood Pressure 132/42 115/43 O2 Sat by Pulse 100 Oximetry - General Appearance General appearance: intubated EENT: other (NGT w/ coffee ground secretions) Respiratory: Present: Decreased Breath Sounds Cardiology: tachycardia Gastrointestinal: absent bowel sounds, distended Integumentary: no rash, warm and dry Neurologic: other (intubated) Musculoskeletal: other (+edema) - Lab 08/22/16 17:00 08/23/16 03:25 Most recent lab results Calcium 4.5 mg/dL (8.4-10.2) L* 08/23/16 03:25 Phosphorus 5.6 mg/dL (2.5-4.5) H 08/22/16 17:00 Magnesium 2.0 mg/dL (1.7-2.3) 08/22/16 17:00
--- NOTE | 2016-08-23 09:59 | Progress Note ---
Assessment and Plan 36 y/o female with acute respiratory failure, shock, most likely secondary to volume depletion, severe hypernatremia and acute renal failure, fever with concern for UTI and now found to have an acute abdomen secondary to ischemic bowel. 1. Surgery spoke with family on phone and explained that she is not a surgical candidate. 2. Awaiting family to arrive and will discuss goals of care 3. Overall prognosis is very, very poor. CCT 31 minutes. Subjective Date of service: 08/23/16 Principal diagnosis: edmundo, sepsis Interval history: Patient found to have ischemic bowel yesterday. Have made attempts to wean off levophed and use vasopressin only but no success. Still with minimal to no urine output. Abdomen is distended, no bowel sounds. Vascular has seen. No note from surgery as of yet. Objective Vital Signs - 12hr 08/22/16 08/22/16 08/22/16 22:01 22:15 22:31 Temperature Pulse Rate 130 H 162 H 162 H Pulse Rate [ Anterior Bilateral] Pulse Rate [ From Monitor] Respiratory 36 H 36 H 35 H Rate Respiratory Rate [Anterior Bilateral] Respiratory Rate [ Generalized] Blood Pressure 115/21 120/68 86/68 O2 Sat by Pulse 99 99 99 Oximetry 08/22/16 08/22/16 08/22/16 22:45 23:01 23:15 Temperature Pulse Rate 162 H 161 H 163 H Pulse Rate [ Anterior Bilateral] Pulse Rate [ From Monitor] Respiratory 35 H 34 H 35 H Rate Respiratory Rate [Anterior Bilateral] Respiratory Rate [ Generalized] Blood Pressure 111/40 191/107 61/20 O2 Sat by Pulse 98 100 96 Oximetry 08/22/16 08/22/16 08/22/16 23:31 23:35 23:41 Temperature Pulse Rate 157 H 159 H 159 H Pulse Rate [ Anterior Bilateral] Pulse Rate [ From Monitor] Respiratory 34 H 36 H 37 H Rate Respiratory Rate [Anterior Bilateral] Respiratory Rate [ Generalized] Blood Pressure 110/50 114/64 114/64 O2 Sat by Pulse 94 96 97 Oximetry 08/22/16 08/22/16 08/22/16 23:45 23:51 23:55 Temperature Pulse Rate 160 H 159 H 158 H Pulse Rate [ Anterior Bilateral] Pulse Rate [ From Monitor] Respiratory 35 H 35 H 35 H Rate Respiratory Rate [Anterior Bilateral] Respiratory Rate [ Generalized] Blood Pressure 114/64 114/64 114/64 O2 Sat by Pulse 97 98 97 Oximetry 08/23/16 08/23/16 08/23/16 00:00 00:01 00:05 Temperature 100.3 F H Pulse Rate 158 H 159 H Pulse Rate [ Anterior Bilateral] Pulse Rate [ 159 H From Monitor] Respiratory 34 H 35 H Rate Respiratory Rate [Anterior Bilateral] Respiratory Rate [ Generalized] Blood Pressure 118/55 118/55 O2 Sat by Pulse 97 97 Oximetry 08/23/16 08/23/16 08/23/16 00:06 00:11 00:15 Temperature Pulse Rate 159 H 159 H 159 H Pulse Rate [ Anterior Bilateral] Pulse Rate [ From Monitor] Respiratory 35 H 35 H Rate Respiratory Rate [Anterior Bilateral] Respiratory Rate [ Generalized] Blood Pressure 144/86 118/55 118/55 O2 Sat by Pulse 97 97 97 Oximetry 08/23/16 08/23/16 08/23/16 00:21 00:25 00:31 Temperature Pulse Rate 156 H 156 H 157 H Pulse Rate [ Anterior Bilateral] Pulse Rate [ From Monitor] Respiratory 35 H 28 H 35 H Rate Respiratory Rate [Anterior Bilateral] Respiratory Rate [ Generalized] Blood Pressure 118/55 118/55 157/36 O2 Sat by Pulse 97 98 97 Oximetry 08/23/16 08/23/16 08/23/16 00:35 00:41 00:45 Temperature Pulse Rate 157 H 157 H 157 H Pulse Rate [ Anterior Bilateral] Pulse Rate [ From Monitor] Respiratory 35 H 35 H 34 H Rate Respiratory Rate [Anterior Bilateral] Respiratory Rate [ Generalized] Blood Pressure 120/56 120/56 120/56 O2 Sat by Pulse 97 97 98 Oximetry 08/23/16 08/23/16 08/23/16 00:51 01:00 01:07 Temperature Pulse Rate 158 H 156 H Pulse Rate [ Anterior Bilateral] Pulse Rate [ From Monitor] Respiratory 35 H 35 H Rate Respiratory Rate [Anterior Bilateral] Respiratory 35 H Rate [ Generalized] Blood Pressure 58/27 141/56 O2 Sat by Pulse 98 98 Oximetry 08/23/16 08/23/16 08/23/16 01:15 01:31 01:45 Temperature Pulse Rate 157 H 157 H 157 H Pulse Rate [ Anterior Bilateral] Pulse Rate [ From Monitor] Respiratory 36 H 35 H 35 H Rate Respiratory Rate [Anterior Bilateral] Respiratory Rate [ Generalized] Blood Pressure 125/95 106/62 125/95 O2 Sat by Pulse 98 97 97 Oximetry 08/23/16 08/23/16 08/23/16 01:55 02:01 02:05 Temperature Pulse Rate 157 H Pulse Rate [ 157 H 158 H Anterior Bilateral] Pulse Rate [ From Monitor] Respiratory 35 H Rate Respiratory 35 H 35 H Rate [Anterior Bilateral] Respiratory Rate [ Generalized] Blood Pressure 122/35 O2 Sat by Pulse 97 Oximetry 08/23/16 08/23/16 08/23/16 02:15 02:31 02:45 Temperature Pulse Rate 157 H 158 H 158 H Pulse Rate [ Anterior Bilateral] Pulse Rate [ From Monitor] Respiratory 31 H 35 H 34 H Rate Respiratory Rate [Anterior Bilateral] Respiratory Rate [ Generalized] Blood Pressure 146/37 122/53 138/40 O2 Sat by Pulse 98 98 98 Oximetry 08/23/16 08/23/16 08/23/16 03:01 03:15 03:31 Temperature Pulse Rate 157 H 157 H 156 H Pulse Rate [ Anterior Bilateral] Pulse Rate [ From Monitor] Respiratory 35 H 34 H 31 H Rate Respiratory Rate [Anterior Bilateral] Respiratory Rate [ Generalized] Blood Pressure 141/24 109/33 O2 Sat by Pulse 99 98 99 Oximetry 08/23/16 08/23/16 08/23/16 03:45 04:00 04:01 Temperature 100.5 F H Pulse Rate 155 H 155 H Pulse Rate [ Anterior Bilateral] Pulse Rate [ 155 H From Monitor] Respiratory 34 H 35 H 35 H Rate Respiratory Rate [Anterior Bilateral] Respiratory Rate [ Generalized] Blood Pressure 109/33 122/33 O2 Sat by Pulse 100 99 Oximetry 08/23/16 08/23/16 08/23/16 04:15 04:30 04:31 Temperature Pulse Rate 154 H 154 H 154 H Pulse Rate [ Anterior Bilateral] Pulse Rate [ From Monitor] Respiratory 33 H 30 H Rate Respiratory Rate [Anterior Bilateral] Respiratory Rate [ Generalized] Blood Pressure 120/50 122/33 129/75 O2 Sat by Pulse 100 97 98 Oximetry 08/23/16 08/23/16 08/23/16 04:45 05:00 05:15 Temperature Pulse Rate 153 H 152 H Pulse Rate [ Anterior Bilateral] Pulse Rate [ From Monitor] Respiratory 35 H 32 H Rate Respiratory Rate [Anterior Bilateral] Respiratory Rate [ Generalized] Blood Pressure 103/55 136/50 136/50 O2 Sat by Pulse 98 98 98 Oximetry 08/23/16 08/23/16 08/23/16 05:30 05:45 06:00 Temperature Pulse Rate 152 H 152 H 151 H Pulse Rate [ Anterior Bilateral] Pulse Rate [ From Monitor] Respiratory 35 H 35 H 30 H Rate Respiratory Rate [Anterior Bilateral] Respiratory Rate [ Generalized] Blood Pressure 106/57 110/60 112/55 O2 Sat by Pulse 99 98 99 Oximetry 08/23/16 08/23/16 08/23/16 06:15 06:31 06:45 Temperature Pulse Rate 151 H 152 H 151 H Pulse Rate [ Anterior Bilateral] Pulse Rate [ From Monitor] Respiratory 22 34 H 27 H Rate Respiratory Rate [Anterior Bilateral] Respiratory Rate [ Generalized] Blood Pressure 112/55 116/62 116/62 O2 Sat by Pulse 98 99 100 Oximetry 08/23/16 08/23/16 08/23/16 07:01 07:15 07:31 Temperature Pulse Rate 151 H 150 H 149 H Pulse Rate [ Anterior Bilateral] Pulse Rate [ From Monitor] Respiratory 31 H 33 H 28 H Rate Respiratory Rate [Anterior Bilateral] Respiratory Rate [ Generalized] Blood Pressure 113/56 113/56 131/47 O2 Sat by Pulse 99 100 100 Oximetry 08/23/16 08/23/16 08/23/16 07:45 07:55 08:01 Temperature Pulse Rate 149 H 149 H 149 H Pulse Rate [ 148 H Anterior Bilateral] Pulse Rate [ From Monitor] Respiratory 29 H 33 H Rate Respiratory 32 H Rate [Anterior Bilateral] Respiratory Rate [ Generalized] Blood Pressure 131/47 120/37 127/25 O2 Sat by Pulse 99 98 100 Oximetry 08/23/16 08/23/16 08/23/16 08:15 08:30 08:31 Temperature 100 F H Pulse Rate 149 H 152 H 154 H Pulse Rate [ Anterior Bilateral] Pulse Rate [ From Monitor] Respiratory 26 H 17 33 H Rate Respiratory Rate [Anterior Bilateral] Respiratory Rate [ Generalized] Blood Pressure 127/25 96/35 O2 Sat by Pulse 99 99 100 Oximetry 08/23/16 08/23/16 08/23/16 08:45 09:00 09:01 Temperature Pulse Rate 152 H 149 H 151 H Pulse Rate [ Anterior Bilateral] Pulse Rate [ 154 H From Monitor] Respiratory 16 29 H 29 H Rate Respiratory Rate [Anterior Bilateral] Respiratory Rate [ Generalized] Blood Pressure 111/47 115/43 115/43 O2 Sat by Pulse 100 95 99 Oximetry 08/23/16 08/23/16 09:05 09:15 Temperature 9.5 F L Pulse Rate 149 H 151 H Pulse Rate [ Anterior Bilateral] Pulse Rate [ From Monitor] Respiratory 25 H 30 H Rate Respiratory Rate [Anterior Bilateral] Respiratory Rate [ Generalized] Blood Pressure 132/42 115/43 O2 Sat by Pulse 100 Oximetry Constitutional: comatose Eyes: non-icteric ENT: other (orally intubated) Neck: supple Ascultation: Bilateral: clear Percussion: Bilateral: not dull Cardiovascular: other (sinus tachycardia) Gastrointestinal: absent bowel sounds, other (distended, known ischemic bowel documented/found on CT aBD/Pel) Extremities: no cyanosis CBC and BMP: 08/22/16 17:00 08/23/16 03:25 ABG, PT/INR, D-dimer: ABG POC ABG pH 7.276 (7.35-7.45) L 08/22/16 04:42 POC ABG pCO2 17.2 (35-45) L 08/22/16 04:42 POC ABG pO2 147 (80-105) H 08/22/16 04:42 POC ABG HCO3 8.0 08/22/16 04:42 POC ABG Total CO2 9 08/22/16 04:42 POC ABG O2 Sat 99 08/22/16 04:42 PT/INR, D-dimer PT 34.9 Sec. (12.2-14.9) H 08/22/16 17:00 INR 3.44 (0.87-1.13) H 08/22/16 17:00 Abnormal lab findings: Abnormal Labs 08/21/16 08/21/16 08/21/16 12:09 12:09 15:06 WBC Hct MCV RDW Plt Count Seg Neuts % (Manual) Lymphocytes % (Manual) PT INR APTT POC ABG pH POC ABG pCO2 POC ABG pO2 Sodium 168 H* Potassium Chloride Carbon Dioxide BUN Creatinine Glucose Lactic Acid 2.6 H* 3.2 H* Calcium Phosphorus AST ALT Total Protein Albumin 08/21/16 08/21/16 08/21/16 15:06 16:06 18:07 WBC Hct MCV RDW Plt Count Seg Neuts % (Manual) Lymphocytes % (Manual) PT INR APTT POC ABG pH 7.174 L POC ABG pCO2 21.3 L POC ABG pO2 193 H Sodium 166 H* 166 H* Potassium Chloride 131.3 H Carbon Dioxide 10 L BUN 86 H Creatinine 2.6 H Glucose 183 H Lactic Acid Calcium 5.4 L* D Phosphorus AST ALT Total Protein Albumin 08/21/16 08/21/16 08/21/16 20:25 20:25 21:20 WBC Hct MCV RDW Plt Count Seg Neuts % (Manual) Lymphocytes % (Manual) PT INR APTT POC ABG pH 7.140 L POC ABG pCO2 21.0 L POC ABG pO2 185 H Sodium 166 H* Potassium Chloride 133.9 H Carbon Dioxide 8 L* BUN 81 H Creatinine 2.4 H Glucose 169 H Lactic Acid 4.4 H* Calcium 4.8 L* Phosphorus 5.9 H AST ALT Total Protein Albumin 08/22/16 08/22/16 08/22/16 00:00 00:30 04:42 WBC Hct MCV RDW Plt Count Seg Neuts % (Manual) Lymphocytes % (Manual) PT INR APTT POC ABG pH 7.276 L POC ABG pCO2 17.2 L POC ABG pO2 147 H Sodium 163 H* Potassium Chloride Carbon Dioxide BUN Creatinine Glucose Lactic Acid 6.6 H* Calcium Phosphorus AST ALT Total Protein Albumin 08/22/16 08/22/16 08/22/16 05:35 05:35 05:35 WBC 18.5 H Hct 44.9 H MCV 102 H RDW 15.9 H Plt Count 35 L Seg Neuts % (Manual) 35.0 L Lymphocytes % (Manual) 11 L PT INR APTT POC ABG pH POC ABG pCO2 POC ABG pO2 Sodium 166 H* Potassium 3.3 L Chloride 127.3 H Carbon Dioxide 9 L* BUN 82 H Creatinine 2.8 H Glucose 209 H Lactic Acid 7.4 H* Calcium 5.1 L* Phosphorus AST ALT Total Protein Albumin 08/22/16 08/22/16 08/22/16 07:15 17:00 17:00 WBC Hct MCV RDW Plt Count 18 L* Seg Neuts % (Manual) Lymphocytes % (Manual) PT INR APTT POC ABG pH POC ABG pCO2 POC ABG pO2 Sodium 158 H 157 H Potassium 3.4 L 3.5 L Chloride 121.9 H 121.4 H Carbon Dioxide 10 L 10 L BUN 81 H 81 H Creatinine 2.9 H 3.2 H Glucose 213 H 155 H Lactic Acid Calcium 5.2 L* 4.5 L* Phosphorus 5.6 H AST 335 H ALT 350 H Total Protein 3.8 L D Albumin 1.4 L 08/22/16 08/23/16 17:00 03:25 WBC Hct MCV RDW Plt Count Seg Neuts % (Manual) Lymphocytes % (Manual) PT 34.9 H INR 3.44 H APTT 50.7 H POC ABG pH POC ABG pCO2 POC ABG pO2 Sodium 156 H Potassium Chloride 119.5 H Carbon Dioxide 10 L BUN 89 H Creatinine 3.3 H Glucose 176 H Lactic Acid Calcium 4.5 L* Phosphorus AST ALT Total Protein Albumin Chest x-ray: image reviewed (no change) Additional Studies: CT scan
[2016-08-23] MEDS: DIFLUCAN 200 MG/100 ML BAG IV SCH (14:30)
--- NOTE | 2016-08-23 18:53 | Progress Note ---
Subjective Date of service: 08/23/16 Principal diagnosis: edmundo, sepsis Interval history: Patient with ischemic bowel and in septic shock. Poor candidate for surgery. LABS See lab section ASSESSMENT 1. SEPTIC SHOCK 2. BOWEL ISCHEMIA 3. QUADRIPLEGIA RECOMMENDATION POOR PROGNOSIS. Objective - Constitutional Vitals: Vital Signs Temp Pulse Resp BP Pulse Ox 9.5 F L 143 H 30 H 120/60 100 08/23/16 09:05 08/23/16 18:45 08/23/16 18:45 08/23/16 18:45 08/23/16 18:45 Temperature -Last 24 Hours Temperature 9.5 F Temperature 100 F Temperature 100.5 F Temperature 100.3 F Temperature 100.9 F - Labs CBC & Chem 7: 08/22/16 17:00 08/23/16 03:25 Labs: Abnormal lab results 08/23/16 Range/Units 03:25 Sodium 156 H (137-145) mmol/L Chloride 119.5 H (98-107) mmol/L Carbon Dioxide 10 L (22-30) mmol/L BUN 89 H (7-17) mg/dL Creatinine 3.3 H (0.7-1.2) mg/dL Glucose 176 H (65-100) mg/dL Calcium 4.5 L* (8.4-10.2) mg/dL
--- NOTE | 2016-08-23 22:33 | Progress Note ---
Assessment and Plan * Septic Shock * Ischemic Bowel * Severe Hypernatremia * Dehydration * TBI * Quadraplegia * ERIC * Acute Respiratory failure with hypoxia * Coagulopathy * Thrombocytopenia * Hepatic shock syndrome : * Continue ICU care, continue aggressive fluids * Poor prognosis * start on Heparin, discussed with Fusion Operator, Consulted with surgeon and will await POA input for possible surgical intervention * remains on stable * start on empiric antibiotics coverage, continue pressors, noriega culture * Monitor electrolyte * Start Free water replacement * Wean oxygen and Vent as tolerated * Keep map 65 over have given 3 L of fluids may require a second pressure. * Strict ins and outs and avoid nephrotoxins. * DVT and GI prophylaxis * There is no family member present to discuss case with him also discuss case with the care provider. Subjective Date of service: 08/23/16 Principal diagnosis: eric, sepsis Interval history: Remains intubated and unresponsive Objective - Constitutional Vitals: Vital Signs - 12hr 08/23/16 08/23/16 08/23/16 10:45 11:01 11:15 Temperature Pulse Rate 146 H 146 H 146 H Pulse Rate [ Anterior Bilateral] Pulse Rate [ From Monitor] Respiratory 34 H 35 H 31 H Rate Respiratory Rate [Anterior Bilateral] Respiratory Rate [ Generalized] Blood Pressure 101/54 113/40 126/60 O2 Sat by Pulse 100 100 100 Oximetry 08/23/16 08/23/16 08/23/16 11:31 11:45 12:00 Temperature Pulse Rate 145 H 145 H 143 H Pulse Rate [ Anterior Bilateral] Pulse Rate [ 139 H From Monitor] Respiratory 36 H 30 H 34 H Rate Respiratory Rate [Anterior Bilateral] Respiratory Rate [ Generalized] Blood Pressure 133/52 133/52 113/49 O2 Sat by Pulse 100 100 100 Oximetry 08/23/16 08/23/16 08/23/16 12:15 12:31 12:45 Temperature Pulse Rate 142 H 143 H 144 H Pulse Rate [ Anterior Bilateral] Pulse Rate [ From Monitor] Respiratory 30 H 30 H 30 H Rate Respiratory Rate [Anterior Bilateral] Respiratory Rate [ Generalized] Blood Pressure 113/49 121/67 108/41 O2 Sat by Pulse 100 100 100 Oximetry 08/23/16 08/23/16 08/23/16 13:01 13:15 13:30 Temperature Pulse Rate 145 H 144 H 143 H Pulse Rate [ Anterior Bilateral] Pulse Rate [ From Monitor] Respiratory 32 H 31 H 34 H Rate Respiratory Rate [Anterior Bilateral] Respiratory Rate [ Generalized] Blood Pressure 113/58 113/58 135/55 O2 Sat by Pulse 100 100 100 Oximetry 08/23/16 08/23/16 08/23/16 13:45 13:50 14:00 Temperature Pulse Rate 141 H 140 H 140 H Pulse Rate [ Anterior Bilateral] Pulse Rate [ From Monitor] Respiratory 28 H 27 H Rate Respiratory Rate [Anterior Bilateral] Respiratory Rate [ Generalized] Blood Pressure 135/55 94/35 90/39 O2 Sat by Pulse 100 100 100 Oximetry 08/23/16 08/23/16 08/23/16 14:15 14:30 14:45 Temperature Pulse Rate 139 H 139 H 139 H Pulse Rate [ Anterior Bilateral] Pulse Rate [ From Monitor] Respiratory 25 H 26 H 27 H Rate Respiratory Rate [Anterior Bilateral] Respiratory Rate [ Generalized] Blood Pressure 76/46 93/45 106/31 O2 Sat by Pulse 100 100 84 Oximetry 08/23/16 08/23/16 08/23/16 15:01 15:15 15:28 Temperature Pulse Rate 139 H 140 H Pulse Rate [ Anterior Bilateral] Pulse Rate [ From Monitor] Respiratory 29 H 35 H Rate Respiratory Rate [Anterior Bilateral] Respiratory Rate [ Generalized] Blood Pressure 106/31 126/44 O2 Sat by Pulse 100 100 97 Oximetry 08/23/16 08/23/16 08/23/16 15:30 15:35 15:45 Temperature Pulse Rate 140 H 143 H Pulse Rate [ 141 H Anterior Bilateral] Pulse Rate [ From Monitor] Respiratory 28 H 36 H Rate Respiratory 30 H Rate [Anterior Bilateral] Respiratory Rate [ Generalized] Blood Pressure 124/65 144/67 O2 Sat by Pulse 100 100 Oximetry 08/23/16 08/23/16 08/23/16 16:00 16:01 16:15 Temperature Pulse Rate 145 H 145 H Pulse Rate [ 125 H Anterior Bilateral] Pulse Rate [ From Monitor] Respiratory 30 H 34 H Rate Respiratory 30 H Rate [Anterior Bilateral] Respiratory Rate [ Generalized] Blood Pressure 144/67 121/56 O2 Sat by Pulse 100 100 Oximetry 08/23/16 08/23/16 08/23/16 16:30 16:45 17:00 Temperature Pulse Rate 143 H 144 H 145 H Pulse Rate [ Anterior Bilateral] Pulse Rate [ From Monitor] Respiratory 31 H 36 H 35 H Rate Respiratory Rate [Anterior Bilateral] Respiratory Rate [ Generalized] Blood Pressure 124/56 134/78 119/73 O2 Sat by Pulse 100 100 100 Oximetry 08/23/16 08/23/16 08/23/16 17:15 17:31 17:45 Temperature Pulse Rate 144 H Pulse Rate [ Anterior Bilateral] Pulse Rate [ From Monitor] Respiratory 24 Rate Respiratory Rate [Anterior Bilateral] Respiratory Rate [ Generalized] Blood Pressure 119/73 104/75 102/48 O2 Sat by Pulse 89 98 100 Oximetry 08/23/16 08/23/16 08/23/16 18:00 18:01 18:15 Temperature Pulse Rate 144 H 144 H 144 H Pulse Rate [ Anterior Bilateral] Pulse Rate [ From Monitor] Respiratory 32 H 34 H Rate Respiratory Rate [Anterior Bilateral] Respiratory Rate [ Generalized] Blood Pressure 113/56 113/56 113/56 O2 Sat by Pulse 100 100 100 Oximetry 08/23/16 08/23/16 08/23/16 18:30 18:45 19:01 Temperature Pulse Rate 142 H 143 H 142 H Pulse Rate [ Anterior Bilateral] Pulse Rate [ From Monitor] Respiratory 30 H 30 H 31 H Rate Respiratory Rate [Anterior Bilateral] Respiratory Rate [ Generalized] Blood Pressure 117/54 120/60 127/52 O2 Sat by Pulse 100 100 100 Oximetry 08/23/16 08/23/16 08/23/16 19:31 20:00 20:03 Temperature 100.4 F H Pulse Rate 140 H Pulse Rate [ Anterior Bilateral] Pulse Rate [ From Monitor] Respiratory 27 H Rate Respiratory Rate [Anterior Bilateral] Respiratory Rate [ Generalized] Blood Pressure 125/50 122/42 O2 Sat by Pulse 100 100 Oximetry 08/23/16 08/23/16 08/23/16 20:08 20:13 20:23 Temperature Pulse Rate 139 H Pulse Rate [ 139 H 140 H Anterior Bilateral] Pulse Rate [ From Monitor] Respiratory Rate Respiratory 30 H 21 Rate [Anterior Bilateral] Respiratory Rate [ Generalized] Blood Pressure 122/42 O2 Sat by Pulse 100 Oximetry 08/23/16 08/23/16 08/23/16 20:30 21:00 21:01 Temperature Pulse Rate 141 H 143 H Pulse Rate [ Anterior Bilateral] Pulse Rate [ 145 H From Monitor] Respiratory 35 H 34 H 33 H Rate Respiratory Rate [Anterior Bilateral] Respiratory 34 H Rate [ Generalized] Blood Pressure 124/51 123/37 O2 Sat by Pulse 100 100 100 Oximetry General appearance: Present: other (intubated and unresponsive, decerebrate posture) - EENT Eyes: no scleral icterus, no conjunctival injection - Neck Neck: supple, normal ROM - Respiratory Respiratory effort: normal Respiratory: bilateral: diminished - Cardiovascular Rhythm: regular Heart Sounds: Present: S1 & S2. Absent: gallop, rub Extremities: pulses intact, No edema, normal color, Full ROM - Gastrointestinal General gastrointestinal: Present: soft, non-tender, non-distended, normal bowel sounds - Integumentary Integumentary: clear, warm, dry - Musculoskeletal Musculoskeletal: other (sedated and intubated) - Neurologic Neurologic: moves all extremities - Psychiatric Psychiatric: other (unresponsive) - Labs CBC & Chem 7: 08/22/16 17:00 08/23/16 03:25 Labs: Abnormal lab results 08/23/16 Range/Units 03:25 Sodium 156 H (137-145) mmol/L Chloride 119.5 H (98-107) mmol/L Carbon Dioxide 10 L (22-30) mmol/L BUN 89 H (7-17) mg/dL Creatinine 3.3 H (0.7-1.2) mg/dL Glucose 176 H (65-100) mg/dL Calcium 4.5 L* (8.4-10.2) mg/dL
[2016-08-24] MEDS: ZOSYN/NS 2.25 GM/50ML 2.25 GM/50 ML BAG IV SCH ×3 (00:55→15:41)
[2016-08-24] MEDS: SODIUM BICARBONATE IV SCH (00:56)
[2016-08-24] MEDS: D5W IV SCH (00:56)
[2016-08-24] MEDS: KCL IV SCH (00:56)
[2016-08-24] MEDS: DUONEB 0.5 MG-3 MG/3 ML SOLN IH SCH ×3 (05:36→16:10)
[2016-08-24 06:36] LABS: Hemoglobin 7.6 gm/dl (10.1-14.3)
[2016-08-24 07:11] LABS: BUN/Creatinine Ratio 26.21; Chloride 112.7 mmol/L (98-107); Potassium 4.4 mmol/L (3.6-5.0)
[2016-08-24 07:20] LABS: Calcium 4.2 mg/dL (8.4-10.2)
--- NOTE | 2016-08-24 09:22 | XRay Report ---
Single view chest: Compared to 08/23/16. History: Followup of respiratory failure. Findings: Ill-defined density right lower lobe not seen the previous study. Normal cardiomediastinal silhouette. Stable support system. Impression: New density right lower lobe probably suggestive of pneumonitis.
[2016-08-24] MEDS ORDERED: KCL IV SCH (09:39)
[2016-08-24] MEDS ORDERED: D5W IV SCH (09:39)
[2016-08-24] MEDS ORDERED: SODIUM BICARBONATE IV SCH (09:39)
--- NOTE | 2016-08-24 09:49 | Progress Note ---
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 increase bicarb in ivfs today * cr continues to rise, minimal uop today * keep map greater than 65 * Surgery consultation--ir note reviewed - patient w/ acute abdomen; * Abx per primary team/ID * Continue IVF * Avoid nephrotoxins * Dose medications for renal function * Prognosis is poor. Patient is not a halfway candidate for renal replacement therapy * Recommend comfort care measures. Subjective Date of service: 08/24/16 Principal diagnosis: eric, sepsis Interval history: resting well in bed today Objective - Exam Narrative Exam: GENERAL: The patient is a chronically ill-appearing female who is unresponsive. HEENT: Patient is intubated and has a scar to her anterior neck from a previous tracheostomy. NECK: Supple. No meningitic signs are noted. There is no adenopathy noted. CHEST/LUNGS: Clear to auscultation. Bilateral breath sounds with bagging. No respiratory effort. HEART/CARDIOVASCULAR: Regular. There is tachycardia. There is no gallop rub or murmur. ABDOMEN: Abdomen is soft, nontender. Patient has normal bowel sounds. There is no abdominal distention. G-tube in place SKIN: There is no rash. There is no edema. There is no diaphoresis. NEURO: The patient is obtunded. MUSCULOSKELETAL: Patient has contractures of all 4 extremities. - Vital Signs Vital signs: Vital Signs - 12hr 08/23/16 08/23/16 08/23/16 22:00 22:30 23:00 Temperature Pulse Rate 142 H 142 H 142 H Pulse Rate [ Anterior Bilateral] Pulse Rate [ From Monitor] Respiratory 33 H 31 H 29 H Rate Respiratory Rate [Anterior Bilateral] Respiratory Rate [ Generalized] Blood Pressure 105/60 127/47 120/49 O2 Sat by Pulse 100 100 100 Oximetry 08/23/16 08/23/16 08/24/16 23:30 23:32 00:00 Temperature Pulse Rate 142 H 142 H 140 H Pulse Rate [ Anterior Bilateral] Pulse Rate [ From Monitor] Respiratory 31 H 30 H Rate Respiratory Rate [Anterior Bilateral] Respiratory Rate [ Generalized] Blood Pressure 138/45 118/48 O2 Sat by Pulse 100 100 Oximetry 08/24/16 08/24/16 08/24/16 00:10 00:12 00:24 Temperature 100.5 F H Pulse Rate 141 H Pulse Rate [ Anterior Bilateral] Pulse Rate [ 141 H From Monitor] Respiratory 25 H 22 Rate Respiratory Rate [Anterior Bilateral] Respiratory Rate [ Generalized] Blood Pressure 128/44 O2 Sat by Pulse 100 100 Oximetry 08/24/16 08/24/16 08/24/16 00:30 00:35 01:00 Temperature Pulse Rate 141 H 141 H Pulse Rate [ Anterior Bilateral] Pulse Rate [ From Monitor] Respiratory 26 H 29 H Rate Respiratory Rate [Anterior Bilateral] Respiratory 23 Rate [ Generalized] Blood Pressure 129/45 136/48 O2 Sat by Pulse 100 100 Oximetry 08/24/16 08/24/16 08/24/16 01:30 02:00 02:30 Temperature Pulse Rate 140 H 140 H 139 H Pulse Rate [ Anterior Bilateral] Pulse Rate [ From Monitor] Respiratory 30 H 22 30 H Rate Respiratory Rate [Anterior Bilateral] Respiratory Rate [ Generalized] Blood Pressure 118/48 113/43 102/19 O2 Sat by Pulse 100 97 100 Oximetry 08/24/16 08/24/16 08/24/16 03:00 03:30 04:00 Temperature Pulse Rate 138 H 129 H Pulse Rate [ Anterior Bilateral] Pulse Rate [ From Monitor] Respiratory 28 H 32 H Rate Respiratory Rate [Anterior Bilateral] Respiratory Rate [ Generalized] Blood Pressure 100/78 116/57 114/44 O2 Sat by Pulse 92 99 Oximetry 08/24/16 08/24/16 08/24/16 04:25 04:30 05:00 Temperature 99.1 F Pulse Rate 135 H 131 H Pulse Rate [ Anterior Bilateral] Pulse Rate [ From Monitor] Respiratory 22 30 H Rate Respiratory Rate [Anterior Bilateral] Respiratory Rate [ Generalized] Blood Pressure 107/62 115/41 O2 Sat by Pulse Oximetry 08/24/16 08/24/16 08/24/16 05:30 05:40 05:42 Temperature Pulse Rate 130 H 128 H Pulse Rate [ Anterior Bilateral] Pulse Rate [ From Monitor] Respiratory 33 H 29 H Rate Respiratory Rate [Anterior Bilateral] Respiratory 31 H Rate [ Generalized] Blood Pressure 114/44 114/44 O2 Sat by Pulse 100 Oximetry 08/24/16 08/24/16 08/24/16 05:43 05:50 06:00 Temperature Pulse Rate 128 H 130 H Pulse Rate [ Anterior Bilateral] Pulse Rate [ 129 H From Monitor] Respiratory 32 H 24 29 H Rate Respiratory Rate [Anterior Bilateral] Respiratory Rate [ Generalized] Blood Pressure 116/59 116/59 O2 Sat by Pulse 100 Oximetry 08/24/16 08/24/16 08/24/16 06:10 06:20 06:30 Temperature Pulse Rate 128 H 127 H 129 H Pulse Rate [ Anterior Bilateral] Pulse Rate [ From Monitor] Respiratory 31 H 27 H 33 H Rate Respiratory Rate [Anterior Bilateral] Respiratory Rate [ Generalized] Blood Pressure 104/37 129/51 110/60 O2 Sat by Pulse 100 99 Oximetry 08/24/16 08/24/16 08/24/16 06:40 06:50 07:00 Temperature Pulse Rate 126 H 127 H 133 H Pulse Rate [ Anterior Bilateral] Pulse Rate [ From Monitor] Respiratory 30 H 34 H Rate Respiratory Rate [Anterior Bilateral] Respiratory Rate [ Generalized] Blood Pressure 110/60 110/60 127/77 O2 Sat by Pulse 98 94 80 L Oximetry 08/24/16 08/24/16 08/24/16 07:10 07:20 07:30 Temperature Pulse Rate 130 H 126 H 129 H Pulse Rate [ Anterior Bilateral] Pulse Rate [ From Monitor] Respiratory 34 H 35 H 34 H Rate Respiratory Rate [Anterior Bilateral] Respiratory Rate [ Generalized] Blood Pressure 127/77 90/50 90/50 O2 Sat by Pulse 91 Oximetry 08/24/16 08/24/16 08/24/16 07:40 07:50 08:00 Temperature 99.6 F Pulse Rate 129 H 129 H 130 H Pulse Rate [ Anterior Bilateral] Pulse Rate [ From Monitor] Respiratory 34 H 34 H 35 H Rate Respiratory Rate [Anterior Bilateral] Respiratory Rate [ Generalized] Blood Pressure 91/50 90/50 90/50 O2 Sat by Pulse 96 Oximetry 08/24/16 08/24/16 08/24/16 08:07 08:08 08:10 Temperature Pulse Rate 128 H 128 H Pulse Rate [ 129 H Anterior Bilateral] Pulse Rate [ From Monitor] Respiratory 34 H Rate Respiratory 34 H Rate [Anterior Bilateral] Respiratory Rate [ Generalized] Blood Pressure 82/48 82/48 O2 Sat by Pulse 99 Oximetry 08/24/16 08/24/16 08/24/16 08:20 08:30 08:40 Temperature Pulse Rate 128 H 129 H 129 H Pulse Rate [ Anterior Bilateral] Pulse Rate [ From Monitor] Respiratory 34 H 35 H 35 H Rate Respiratory Rate [Anterior Bilateral] Respiratory Rate [ Generalized] Blood Pressure 108/72 104/68 104/68 O2 Sat by Pulse 96 Oximetry 08/24/16 08/24/16 08:50 09:00 Temperature Pulse Rate 130 H 129 H Pulse Rate [ Anterior Bilateral] Pulse Rate [ From Monitor] Respiratory 34 H 34 H Rate Respiratory Rate [Anterior Bilateral] Respiratory Rate [ Generalized] Blood Pressure 112/65 118/56 O2 Sat by Pulse 96 Oximetry - Lab 08/24/16 06:05 08/24/16 06:05 Most recent lab results Calcium 4.2 mg/dL (8.4-10.2) L* 08/24/16 06:05 Phosphorus 5.6 mg/dL (2.5-4.5) H 08/22/16 17:00 Magnesium 2.0 mg/dL (1.7-2.3) 08/22/16 17:00
--- NOTE | 2016-08-24 09:56 | Progress Note ---
Assessment and Plan 36 y/o female with acute respiratory failure, shock, most likely secondary to volume depletion, severe hypernatremia and acute renal failure, fever with concern for UTI and now found to have an acute abdomen secondary to ischemic bowel. 1. Patient is now a DNR 2. Family to make decision about hospice, would like inpatient facility or to stay in this hospital 3. Overall prognosis is very, very poor. CCT 31 minutes. Subjective Date of service: 08/24/16 Principal diagnosis: edmundo, sepsis Interval history: No acute events. Remains on two pressors. Unresponsive. Long discussion with POA yesterday. Patient is now a DNR. Signed by 2 physicans in the chart. Family still waiting but will most likely go with hospice. Objective Vital Signs - 12hr 08/23/16 08/23/16 08/23/16 22:00 22:30 23:00 Temperature Pulse Rate 142 H 142 H 142 H Pulse Rate [ Anterior Bilateral] Pulse Rate [ From Monitor] Respiratory 33 H 31 H 29 H Rate Respiratory Rate [Anterior Bilateral] Respiratory Rate [ Generalized] Blood Pressure 105/60 127/47 120/49 O2 Sat by Pulse 100 100 100 Oximetry 08/23/16 08/23/16 08/24/16 23:30 23:32 00:00 Temperature Pulse Rate 142 H 142 H 140 H Pulse Rate [ Anterior Bilateral] Pulse Rate [ From Monitor] Respiratory 31 H 30 H Rate Respiratory Rate [Anterior Bilateral] Respiratory Rate [ Generalized] Blood Pressure 138/45 118/48 O2 Sat by Pulse 100 100 Oximetry 08/24/16 08/24/16 08/24/16 00:10 00:12 00:24 Temperature 100.5 F H Pulse Rate 141 H Pulse Rate [ Anterior Bilateral] Pulse Rate [ 141 H From Monitor] Respiratory 25 H 22 Rate Respiratory Rate [Anterior Bilateral] Respiratory Rate [ Generalized] Blood Pressure 128/44 O2 Sat by Pulse 100 100 Oximetry 08/24/16 08/24/16 08/24/16 00:30 00:35 01:00 Temperature Pulse Rate 141 H 141 H Pulse Rate [ Anterior Bilateral] Pulse Rate [ From Monitor] Respiratory 26 H 29 H Rate Respiratory Rate [Anterior Bilateral] Respiratory 23 Rate [ Generalized] Blood Pressure 129/45 136/48 O2 Sat by Pulse 100 100 Oximetry 08/24/16 08/24/16 08/24/16 01:30 02:00 02:30 Temperature Pulse Rate 140 H 140 H 139 H Pulse Rate [ Anterior Bilateral] Pulse Rate [ From Monitor] Respiratory 30 H 22 30 H Rate Respiratory Rate [Anterior Bilateral] Respiratory Rate [ Generalized] Blood Pressure 118/48 113/43 102/19 O2 Sat by Pulse 100 97 100 Oximetry 08/24/16 08/24/16 08/24/16 03:00 03:30 04:00 Temperature Pulse Rate 138 H 129 H Pulse Rate [ Anterior Bilateral] Pulse Rate [ From Monitor] Respiratory 28 H 32 H Rate Respiratory Rate [Anterior Bilateral] Respiratory Rate [ Generalized] Blood Pressure 100/78 116/57 114/44 O2 Sat by Pulse 92 99 Oximetry 08/24/16 08/24/16 08/24/16 04:25 04:30 05:00 Temperature 99.1 F Pulse Rate 135 H 131 H Pulse Rate [ Anterior Bilateral] Pulse Rate [ From Monitor] Respiratory 22 30 H Rate Respiratory Rate [Anterior Bilateral] Respiratory Rate [ Generalized] Blood Pressure 107/62 115/41 O2 Sat by Pulse Oximetry 08/24/16 08/24/16 08/24/16 05:30 05:40 05:42 Temperature Pulse Rate 130 H 128 H Pulse Rate [ Anterior Bilateral] Pulse Rate [ From Monitor] Respiratory 33 H 29 H Rate Respiratory Rate [Anterior Bilateral] Respiratory 31 H Rate [ Generalized] Blood Pressure 114/44 114/44 O2 Sat by Pulse 100 Oximetry 08/24/16 08/24/16 08/24/16 05:43 05:50 06:00 Temperature Pulse Rate 128 H 130 H Pulse Rate [ Anterior Bilateral] Pulse Rate [ 129 H From Monitor] Respiratory 32 H 24 29 H Rate Respiratory Rate [Anterior Bilateral] Respiratory Rate [ Generalized] Blood Pressure 116/59 116/59 O2 Sat by Pulse 100 Oximetry 08/24/16 08/24/16 08/24/16 06:10 06:20 06:30 Temperature Pulse Rate 128 H 127 H 129 H Pulse Rate [ Anterior Bilateral] Pulse Rate [ From Monitor] Respiratory 31 H 27 H 33 H Rate Respiratory Rate [Anterior Bilateral] Respiratory Rate [ Generalized] Blood Pressure 104/37 129/51 110/60 O2 Sat by Pulse 100 99 Oximetry 08/24/16 08/24/16 08/24/16 06:40 06:50 07:00 Temperature Pulse Rate 126 H 127 H 133 H Pulse Rate [ Anterior Bilateral] Pulse Rate [ From Monitor] Respiratory 30 H 34 H Rate Respiratory Rate [Anterior Bilateral] Respiratory Rate [ Generalized] Blood Pressure 110/60 110/60 127/77 O2 Sat by Pulse 98 94 80 L Oximetry 08/24/16 08/24/16 08/24/16 07:10 07:20 07:30 Temperature Pulse Rate 130 H 126 H 129 H Pulse Rate [ Anterior Bilateral] Pulse Rate [ From Monitor] Respiratory 34 H 35 H 34 H Rate Respiratory Rate [Anterior Bilateral] Respiratory Rate [ Generalized] Blood Pressure 127/77 90/50 90/50 O2 Sat by Pulse 91 Oximetry 08/24/16 08/24/16 08/24/16 07:40 07:50 08:00 Temperature 99.6 F Pulse Rate 129 H 129 H 130 H Pulse Rate [ Anterior Bilateral] Pulse Rate [ From Monitor] Respiratory 34 H 34 H 35 H Rate Respiratory Rate [Anterior Bilateral] Respiratory Rate [ Generalized] Blood Pressure 91/50 90/50 90/50 O2 Sat by Pulse 96 Oximetry 08/24/16 08/24/16 08/24/16 08:07 08:08 08:10 Temperature Pulse Rate 128 H 128 H Pulse Rate [ 129 H Anterior Bilateral] Pulse Rate [ From Monitor] Respiratory 34 H Rate Respiratory 34 H Rate [Anterior Bilateral] Respiratory Rate [ Generalized] Blood Pressure 82/48 82/48 O2 Sat by Pulse 99 Oximetry 08/24/16 08/24/16 08/24/16 08:20 08:30 08:40 Temperature Pulse Rate 128 H 129 H 129 H Pulse Rate [ Anterior Bilateral] Pulse Rate [ From Monitor] Respiratory 34 H 35 H 35 H Rate Respiratory Rate [Anterior Bilateral] Respiratory Rate [ Generalized] Blood Pressure 108/72 104/68 104/68 O2 Sat by Pulse 96 Oximetry 08/24/16 08/24/16 08:50 09:00 Temperature Pulse Rate 130 H 129 H Pulse Rate [ Anterior Bilateral] Pulse Rate [ From Monitor] Respiratory 34 H 34 H Rate Respiratory Rate [Anterior Bilateral] Respiratory Rate [ Generalized] Blood Pressure 112/65 118/56 O2 Sat by Pulse 96 Oximetry Constitutional: comatose Eyes: non-icteric ENT: other (orally intubated) Neck: supple Ascultation: Bilateral: clear Percussion: Bilateral: not dull Cardiovascular: other (sinus tachycardia) Gastrointestinal: absent bowel sounds, other (distended, known ischemic bowel documented/found on CT aBD/Pel) Extremities: no cyanosis CBC and BMP: 08/24/16 06:05 08/24/16 06:05 ABG, PT/INR, D-dimer: ABG POC ABG pH 7.276 (7.35-7.45) L 08/22/16 04:42 POC ABG pCO2 17.2 (35-45) L 08/22/16 04:42 POC ABG pO2 147 (80-105) H 08/22/16 04:42 POC ABG HCO3 8.0 08/22/16 04:42 POC ABG Total CO2 9 08/22/16 04:42 POC ABG O2 Sat 99 08/22/16 04:42 PT/INR, D-dimer PT 34.9 Sec. (12.2-14.9) H 08/22/16 17:00 INR 3.44 (0.87-1.13) H 08/22/16 17:00 Abnormal lab findings: Abnormal Labs 08/21/16 08/21/16 08/21/16 12:09 12:09 15:06 WBC Hgb Hct MCV RDW Plt Count Seg Neuts % (Manual) Lymphocytes % (Manual) PT INR APTT POC ABG pH POC ABG pCO2 POC ABG pO2 Sodium 168 H* Potassium Chloride Carbon Dioxide BUN Creatinine Glucose Lactic Acid 2.6 H* 3.2 H* Calcium Phosphorus AST ALT Total Protein Albumin 08/21/16 08/21/16 08/21/16 15:06 16:06 18:07 WBC Hgb Hct MCV RDW Plt Count Seg Neuts % (Manual) Lymphocytes % (Manual) PT INR APTT POC ABG pH 7.174 L POC ABG pCO2 21.3 L POC ABG pO2 193 H Sodium 166 H* 166 H* Potassium Chloride 131.3 H Carbon Dioxide 10 L BUN 86 H Creatinine 2.6 H Glucose 183 H Lactic Acid Calcium 5.4 L* D Phosphorus AST ALT Total Protein Albumin 08/21/16 08/21/16 08/21/16 20:25 20:25 21:20 WBC Hgb Hct MCV RDW Plt Count Seg Neuts % (Manual) Lymphocytes % (Manual) PT INR APTT POC ABG pH 7.140 L POC ABG pCO2 21.0 L POC ABG pO2 185 H Sodium 166 H* Potassium Chloride 133.9 H Carbon Dioxide 8 L* BUN 81 H Creatinine 2.4 H Glucose 169 H Lactic Acid 4.4 H* Calcium 4.8 L* Phosphorus 5.9 H AST ALT Total Protein Albumin 08/22/16 08/22/16 08/22/16 00:00 00:30 04:42 WBC Hgb Hct MCV RDW Plt Count Seg Neuts % (Manual) Lymphocytes % (Manual) PT INR APTT POC ABG pH 7.276 L POC ABG pCO2 17.2 L POC ABG pO2 147 H Sodium 163 H* Potassium Chloride Carbon Dioxide BUN Creatinine Glucose Lactic Acid 6.6 H* Calcium Phosphorus AST ALT Total Protein Albumin 08/22/16 08/22/16 08/22/16 05:35 05:35 05:35 WBC 18.5 H Hgb Hct 44.9 H MCV 102 H RDW 15.9 H Plt Count 35 L Seg Neuts % (Manual) 35.0 L Lymphocytes % (Manual) 11 L PT INR APTT POC ABG pH POC ABG pCO2 POC ABG pO2 Sodium 166 H* Potassium 3.3 L Chloride 127.3 H Carbon Dioxide 9 L* BUN 82 H Creatinine 2.8 H Glucose 209 H Lactic Acid 7.4 H* Calcium 5.1 L* Phosphorus AST ALT Total Protein Albumin 08/22/16 08/22/16 08/22/16 07:15 17:00 17:00 WBC Hgb Hct MCV RDW Plt Count 18 L* Seg Neuts % (Manual) Lymphocytes % (Manual) PT INR APTT POC ABG pH POC ABG pCO2 POC ABG pO2 Sodium 158 H 157 H Potassium 3.4 L 3.5 L Chloride 121.9 H 121.4 H Carbon Dioxide 10 L 10 L BUN 81 H 81 H Creatinine 2.9 H 3.2 H Glucose 213 H 155 H Lactic Acid Calcium 5.2 L* 4.5 L* Phosphorus 5.6 H AST 335 H ALT 350 H Total Protein 3.8 L D Albumin 1.4 L 08/22/16 08/23/16 08/24/16 17:00 03:25 06:05 WBC Hgb Hct MCV RDW Plt Count Seg Neuts % (Manual) Lymphocytes % (Manual) PT 34.9 H INR 3.44 H APTT 50.7 H POC ABG pH POC ABG pCO2 POC ABG pO2 Sodium 156 H 151 H Potassium Chloride 119.5 H 112.7 H Carbon Dioxide 10 L 12 L BUN 89 H 97 H Creatinine 3.3 H 3.7 H Glucose 176 H 185 H Lactic Acid Calcium 4.5 L* 4.2 L* Phosphorus AST ALT Total Protein Albumin 08/24/16 06:05 WBC Hgb 7.6 L D Hct 23.0 L D MCV RDW Plt Count 15 L* Seg Neuts % (Manual) Lymphocytes % (Manual) PT INR APTT POC ABG pH POC ABG pCO2 POC ABG pO2 Sodium Potassium Chloride Carbon Dioxide BUN Creatinine Glucose Lactic Acid Calcium Phosphorus AST ALT Total Protein Albumin
[2016-08-24 11:50] VITALS: BP 97/54
--- NOTE | 2016-08-24 12:17 | Discharge Summary ---
Providers - Providers Date of Admission: 08/21/16 08:21 Date of discharge: 08/24/16 Attending physician: THIERRY VÁZQUEZ 08/21/16 09:42 Consult to Physician [CONS] Routine Consulting Provider: MARIAM ADORNO Reason For Exam: hypernatremia- Place consult to:: OFFICE Notified:: YES Phone number called:: [phone] Time called:: 11:28 08/22/16 14:57 Consult to Physician [CONS] Routine Consulting Provider: ZACHARY ABREU Reason For Exam: ischemic gout Place consult to:: office Notified:: yes Phone number called:: [phone] If yes, spoke with:: sue Time called:: 15:00 Primary care physician: BRIDGER RODRIGUEZ Hospitalization Reason for admission: acute toxic metabolic encephalopathy Condition: Stable Pertinent studies: CT scan of the abdomen and pelvis that was remarkable for pneumatosis suggestive of ischemic bowel. Acute calculusnonobstructing was identified on the right kidney Initial chest x-ray was unremarkable subsequent chest x-ray showed evidence of right pneumonitis Procedures: Intubation for vent support Hospital course: Patient is a 38-year-old lady who has a history of quadriplegia, aphasic, traumatic brain injury, and depression, with Previous tracheostomy and PEG tube placement was found unresponsive in a alf facility where she resides. Was brought to the emergency department found to be in respiratory distress. Intubated. Admitted to the ICU. CT scan of abdomen and pelvis was remarkable for pneumatosis suggestive of ischemic bowel. Patient was managing in conjunction with pulmonologists as well as interventional radiologist. In the respiratory recommended palliative care given patient's multiple medical condition and diabetes surgical intervention will have a poor prognosis. Mesenteric angiogram will also be prone to complications given patient's underlying condition. Preventive measure was therefore recommendable by interventional radiologist on the surgeon. Patient went into acute respiratory renal failure for consult was obtained. After prolonged discussion with family members given her multiple organ failure at this point she will decided to be transferred to hospice. Prior to transfer to hospice patient and was certified at 4:50 PM on 08/24/1969. Discussed on empathize with family members in the room. Diagnoses at time of respiration was normal #1 acute respiratory failure #2 sepsis #3 septic shock #4 emergency brain injury #5 status post tracheostomy and PEG tube. Disposition: Core Measure Documentation - Palliative Care Palliative Care/ Comfort Measures: Hospice Care - Core Measures Any of the following diagnoses?: none Exam - Physical Exam Narrative exam: Patient was found with fixed dilated pupils with no respiratory or cardiovascular activity. We'll certified at 4:50 PM - Constitutional Vitals: Temp Pulse Resp BP Pulse Ox 99.6 F 128 H 29 H 97/54 100 08/24/16 08:00 08/24/16 11:40 08/24/16 11:40 08/24/16 11:10 08/24/16 11:30 - Cardiovascular Heart Sounds: Absent: rub, click - Abdominal General gastrointestinal: Present: normal bowel sounds Female genitourinary: Present: normal Plan
[2016-08-24] MEDS ORDERED: BENADRYL IV PRN (15:11)
[2016-08-24] MEDS ORDERED: ATIVAN IV PRN (15:11)
[2016-08-24] MEDS ORDERED: TYLENOL FEEDTUBE PRN (15:11)
[2016-08-24] MEDS ORDERED: ISOPTO TEARS 0.5% OU PRN (15:11)
[2016-08-24] MEDS ORDERED: ZOFRAN IV PRN (15:11)
[2016-08-24] MEDS ORDERED: REGLAN IV PRN (15:11)
[2016-08-24] MEDS: DIFLUCAN 200 MG/100 ML BAG IV SCH (15:42)
[2016-08-24] MEDS ORDERED: fentaNYL DRIP Premix 2,000 MCG/100 ML BAG IV SCH (16:00)
[2016-08-24] MEDS ORDERED: TRANSDERM-SCOP TD SCH (16:00)
[2016-08-24] MEDS: MORPHINE IV PRN ×2 (16:10→16:55)
== END 2016-08-24 19:58 | DRG 871 ==
LOC: ED 07:07 → CC1 08:21
PROVIDERS: ADMIT Internal Medicine; ATTEND Family Medicine
PROC: 5A1945Z Respiratory Ventilation, 24-96 Consecutive Hours (ICD-10-PCS; principal; 2016-08-21)
PROC: 0BH17EZ Insertion of Endotracheal Airway into Trachea, Via Natural or Artificial Opening (ICD-10-PCS; 2016-08-21)
PROC: 02HV33Z Insertion of Infusion Device into Superior Vena Cava, Percutaneous Approach (ICD-10-PCS; 2016-08-21)
PROC: 4A033R1 Measurement of Arterial Saturation, Peripheral, Percutaneous Approach (ICD-10-PCS; 2016-08-21)
PROC: 4A033R1 Measurement of Arterial Saturation, Peripheral, Percutaneous Approach (ICD-10-PCS; 2016-08-21)
PROC: 4A033R1 Measurement of Arterial Saturation, Peripheral, Percutaneous Approach (ICD-10-PCS; 2016-08-22)
PROC: 30233R1 Transfusion of Nonautologous Platelets into Peripheral Vein, Percutaneous Approach (ICD-10-PCS; 2016-08-23)
PROC: 4A033R1 Measurement of Arterial Saturation, Peripheral, Percutaneous Approach (ICD-10-PCS; 2016-08-23)
PROC: 4A033R1 Measurement of Arterial Saturation, Peripheral, Percutaneous Approach (ICD-10-PCS; 2016-08-24)
DX: A41.9 Sepsis, unspecified organism (principal); R65.21 Severe sepsis with septic shock; R53.2 Functional quadriplegia; J96.01 Acute respiratory failure with hypoxia; N17.0 Acute kidney failure with tubular necrosis; K72.00 Acute and subacute hepatic failure without coma; K55.9 Vascular disorder of intestine, unspecified; E87.0 Hyperosmolality and hypernatremia; R47.01 Aphasia; N39.0 Urinary tract infection, site not specified; D68.9 Coagulation defect, unspecified; E86.0 Dehydration; K21.9 Gastro-esophageal reflux disease without esophagitis; R56.9 Unspecified convulsions; F32.9 Major depressive disorder, single episode, unspecified; F41.9 Anxiety disorder, unspecified; D69.6 Thrombocytopenia, unspecified; Z66 Do not resuscitate; Z51.5 Encounter for palliative care; Z88.8 Allergy status to other drugs, medicaments and biological substances; Z93.1 Gastrostomy status; Z79.899 Other long term (current) drug therapy; Z93.0 Tracheostomy status
CPT/HCPCS: 36415; 36600; 70450; 71010; 74176; 80048; 80053; 80202; 81001; 82140; 82803; 82805; 83735; 83930; 83935; 84100; 84295; 85007; 85014; 85018; 85025; 85049; 85610; 85730; 86900; 86901; 87040; 87086; 87205; 93005; 93010; 94002; 94003; 94640; 96365; 96366; 96368; J0610; J1450; J1644; J2060; J2270; J2405; J2543; J3370; J3475; J3480; J7030; J7040; J7050; J7070; P9035